=== PATIENT | male | born 1965 | race Caucasian/White ===

== ENCOUNTER 2016-11-26 13:14 | Emergency (ER) | payer BC ==
[~2016-11-26] VITALS: Ht 177.8 cm; Wt 74.8 kg
[2016-11-26 13:27] VITALS: BP 130/94
[2016-11-26] MEDS ORDERED: GLUCOPHAGE XR500 MG PO (13:28)
--- NOTE | 2016-11-26 13:38 | NUR ---
PATIENT PRESENTS TO ED WITH C/O RIGHT EYE PAIN AND REDNESS X 2 DAYS . PT STATES HE WAS SEEN AT URGENT CARE AND ADVISED TO FOLLOW UP AT ER TO CHECK FOR GLAUCOMA . DENIES N/V/D; SKIN IS PINK/WARM/DRY; AAOX4 WITH EVEN AND STEADY GAIT; LUNGS CLEAR BL; HR EVEN AND REGULAR; PT DENIES ANY FEVER, CP, SOB, OR COUGH AT THIS TIME; PATIENT STATES PAIN OF 4/10 AT THIS TIME; VSS; PATIENT POSITIONED FOR COMFORT; HOB ELEVATED; BEDRAILS UP X2; BED DOWN. ER MD MADE AWARE OF PT STATUS.
[2016-11-26] MEDS ORDERED: TETRACAINE 0.5% OPTH SOL 2 ML BTL OP ONE (13:45)
[2016-11-26] MEDS ORDERED: FLUORESCEIN OPTH STRIP 1 MG ONE (13:59)
[2016-11-26] MEDS ORDERED: GENTAMICIN OP 0.3% 10.5 MG/3.5 GM TUBE OP ONE (14:05)
[2016-11-26 14:31] VITALS: BP 130/94
--- NOTE | 2016-11-26 14:32 | NUR ---
Patient discharged with v/s stable. Written and verbal after care instructions given and explained. Patient alert, oriented and verbalized understanding of instructions. Ambulatory with steady gait. All questions addressed prior to discharge. ID band removed. Patient advised to follow up with PMD. Rx of GARAMYCIN OPHTHALMIC OINTMENT given. Patient educated on indication of medication including possible reaction and side effects. Opportunity to ask questions provided and answered.
== END 2016-11-26 14:32 | disposition home or self-care (01) ==
LOC: MED 13:26
DX: S05.01XA Injury of conjunctiva and corneal abrasion without foreign body, right eye, initial encounter (principal); R03.0 Elevated blood-pressure reading, without diagnosis of hypertension; E11.9 Type 2 diabetes mellitus without complications; Z79.4 Long term (current) use of insulin; X58.XXXA Exposure to other specified factors, initial encounter; Y93.89 Activity, other specified; Y92.89 Other specified places as the place of occurrence of the external cause; Y99.8 Other external cause status

== ENCOUNTER 2021-07-02 18:03 | Inpatient (IN) | payer OTHER, SELFPAY ==
[~2021-07-02] VITALS: Ht 177.8 cm; Wt 70.3 kg
[~2021-07-02 18:03] MED LIST: METF500T2 PO
[2021-07-02 18:11] VITALS: BP 140/85
--- NOTE | 2021-07-02 18:29 | NUR ---
56 Y/O MALE WITH C/O R KNEE PAIN SINCE MONDAY PM. PT STATED "HE HAD A PHYSICAL MONDAY AND STARTED TO EXPERINCE R KNEE PAIN RANDOMLY." PT TOOK TYLENOL AT HOME WHICH PROVIDED SOME RELIEF. SWELLING AND REDNESS TO RT FOOT, WARM TO TOUCH. PMH: CATARACTS, DM NKA
--- NOTE | 2021-07-02 18:53 | NUR ---
DR WALKER AT BEDSIDE EXAMINING PT
[2021-07-02] MEDS ORDERED: NACL 0.9% 1,000 ML IV ONE (19:10)
[2021-07-02] MEDS ORDERED: VANCOMYCIN 1,000 MG in DEXTROSE 5% 250 ML IV ONE (19:10)
[2021-07-02] MEDS ORDERED: PIPERACILLIN/TAZOBACTAM 3.375 GM in DEXTROSE 5% 50 ML IV ONE (19:10)
[2021-07-02] MEDS ORDERED: KETOROLAC 15 MG/ML VIAL IVP ONE (19:10)
--- NOTE | 2021-07-02 19:22 | NUR ---
Pt report given to TWILA CATALAN. Transfer of care at this time.
[2021-07-02] MEDS ORDERED: PIPERACILLIN/TAZOBACTAM 3.375 GM VIAL IV ONE (19:27)
[2021-07-02] MEDS ORDERED: VANCOMYCIN 1,000 MG VIAL ONE (19:28)
[2021-07-02 19:52] LABS: BASOPHILS % (AUTO) 0.2 % (0.0-2.0); EOSINOPHILS # (AUTO) 0.1 K/uL (0-0.4); EOSINOPHILS % (AUTO) 0.8 % (0.0-4.0); HEMATOCRIT 36.9 % (36-52); HEMOGLOBIN 12.4 g/dL (12.0-18.0); LYMPHOCYTES # (AUTO) 2.7 K/uL (2.0-11.5); LYMPHOCYTES % (AUTO) 19.8 % (20.5-51.1); MEAN CORPUSCULAR HEMOGLOBIN 31 pg (27-31); MEAN CORPUSCULAR HGB CONC 34 g/dL (33-37); MEAN CORPUSCULAR VOLUME 91.8 fL (80-94); MONOCYTES # (AUTO) 1.2 K/uL (0.8-1.0); MONOCYTES % (AUTO) 8.7 % (1.7-9.3); NEUTROPHILS # (AUTO) 9.6 K/uL (1.8-7.7); NEUTROPHILS % (AUTO) 70.5 % (42.2-75.2); PLATELET COUNT (AUTO) 236 K/uL (140-450); RED BLOOD CELL COUNT(AUTO) 4.02 MIL/uL (4.20-6.10); RED CELL DISTRIBUTION WIDTH 12.9 % (11.6-13.7); WHITE BLOOD COUNT (AUTO) 13.6 K/uL (4.8-10.8)
[2021-07-02 20:06] LABS: ALBUMIN 3.1 g/dL (3.4-5.0); CARBON DIOXIDE 30.1 mmol/L (21-32); CREATININE 1.1 mg/dL (0.6-1.3); POTASSIUM 4.1 mmol/L (3.5-5.1); TOTAL BILIRUBIN 0.6 mg/dL (0.0-1.0)
--- NOTE | 2021-07-02 20:43 | NUR ---
FULLY VACCINATED, DENIES MED USE AT HOME
[2021-07-02 20:46] LABS: APPEARANCE,URINE CLEAR (CLEAR); BILIRUBIN,URINE NEGATIVE (NEGATIVE); BLOOD, URINE NEGATIVE (NEGATIVE); COLOR,URINE YELLOW (YELLOW); LEUKOCYTE ESTERASE ,URINE NEGATIVE (NEGATIVE); NITRITE, URINE NEGATIVE (NEGATIVE); UGLUCOSE 3+ (NEGATIVE)
[2021-07-02] MEDS ORDERED: SODIUM PHOS / POTASSIUM PHOS 1 PKT PDR PO PRN (20:55)
[2021-07-02] MEDS ORDERED: ONDANSETRON 4 MG/2 ML VIAL IM/IVP PRN (20:55)
[2021-07-02] MEDS ORDERED: MORPHINE SULFATE 2 MG/ML SYR IVP PRN (20:55)
[2021-07-02] MEDS ORDERED: POTASSIUM CHLORIDE 10 MEQ TABER PO PRN (20:55)
[2021-07-02] MEDS ORDERED: MAGNESIUM OXIDE 400 MG TAB PO PRN (20:55)
[2021-07-02] MEDS ORDERED: ACETAMINOPHEN 325 MG TAB PO PRN (20:55)
[2021-07-02] MEDS ORDERED: DOCUSATE SODIUM 100 MG GELCAP PO PRN (20:55)
[2021-07-02] MEDS ORDERED: VANCOMYCIN PER PHARMACY MC PRN (21:10)
[2021-07-02] MEDS ORDERED: DEXTROSE 50% 50 ML SYR IVP PRN (21:10)
[2021-07-02] MEDS: NACL 0.9% 1,000 ML IV SCH (21:21)
[2021-07-02 21:22] LABS: MAGNESIUM 2.2 mg/dL (1.8-2.4)
--- NOTE | 2021-07-02 21:41 | NUR ---
ROSALVA KAYE [phone]
--- NOTE | 2021-07-02 22:22 | NUR ---
REPORT GIVEN TO MINAL AT THIS TIEM. READY FOR TRANSFER TO 112 [address]
--- NOTE | 2021-07-02 22:40 | NUR ---
RECEIVED ADMISSION REPORT FROM ER NURSE. PT ARRIVED TO THE UNIT VIA WHEEL CHAIR. PT CAME IN WITH RIGHT KNEE PAIN AND SWELLING FOR 3 DAYS. DX: RT FOOT ULCER AND CELLULITIS OF TOE. HX: DM, CATARACTS. NO ALLERGIES, FULL CODE. NS 60ML/HR, IV SITE RAC 18G, AND LEFT FOREARM 20G. PT IS A&O X4, AMBULATORY, SAFETY MEASURES IN PLACE, CALL LIGHT WITHIN REACH, MRSA SWAB TAKEN, ADMISSION VITALS 139/87, HR 81, TEMP 98.0, RR 18, OR SAT: 98%, PT STABLE, WILL CONTINUE TO MONITOR.
[2021-07-03] MEDS ORDERED: PIPERACILLIN/TAZOBACTAM 3.375 GM VIAL IV ONE ×2 (00:20→05:32)
[2021-07-03] MEDS: PIPERACILLIN/TAZOBACTAM 3.375 GM in DEXTROSE 5% 50 ML IV SCH ×4 (00:35→18:01)
--- NOTE | 2021-07-03 00:35 | NUR ---
ADMINISTERED SCHEDULED MED. PATIENT IS ASLEEP, NO SIGNS OF DISTRESS, PT STABLE AT THIS MOMENT, WILL CONTINUE TO MONITOR.
--- NOTE | 2021-07-03 03:55 | NUR ---
PT IS ASLEEP, NO SIGNS OF DISTRESS, NORMAL SALINE CURRENTLY INFUSING 60ML/HR, PT STABLE AT THIS MOMENT, WILL CONTINUE TO MONITOR.
[2021-07-03] MEDS: BLOOD GLUCOSE MONITORING 1 DEV DEV FS SCH ×4 (06:35→21:34)
[2021-07-03] MEDS: INSULIN LISPRO SLIDING SCALE 100 UNITS/ML VIAL SUBQ PRN ×4 (06:35→21:46)
--- NOTE | 2021-07-03 06:35 | NUR ---
BS 252 , given 6 units of insulin, patient is stable, will continue to monitor.
--- NOTE | 2021-07-03 06:42 | NUR ---
PATIENT HAS BEEN SCREENED AND CATEGORIZED HIGH NUTRITION RISK. PATIENT WILL BE SEEN WITHIN 1-2 DAYS OF ADMISSION. 07/04/21-07/05/21 TANA CORTEZ MS, RDN
[2021-07-03 07:12] LABS: BASOPHILS % (AUTO) 0.2 % (0.0-2.0); EOSINOPHILS # (AUTO) 0.2 K/uL (0-0.4); EOSINOPHILS % (AUTO) 1.9 % (0.0-4.0); HEMATOCRIT 36.1 % (36-52); HEMOGLOBIN 12.5 g/dL (12.0-18.0); LYMPHOCYTES % (AUTO) 20.2 % (20.5-51.1); MEAN CORPUSCULAR HEMOGLOBIN 32 pg (27-31); MEAN CORPUSCULAR HGB CONC 35 g/dL (33-37); MEAN CORPUSCULAR VOLUME 91.7 fL (80-94); MONOCYTES # (AUTO) 0.9 K/uL (0.8-1.0); MONOCYTES % (AUTO) 8.7 % (1.7-9.3); NEUTROPHILS # (AUTO) 6.8 K/uL (1.8-7.7); PLATELET COUNT (AUTO) 211 K/uL (140-450); RED BLOOD CELL COUNT(AUTO) 3.94 MIL/uL (4.20-6.10); RED CELL DISTRIBUTION WIDTH 12.8 % (11.6-13.7); WHITE BLOOD COUNT (AUTO) 9.9 K/uL (4.8-10.8)
[2021-07-03] MEDS ORDERED: VANCOMYCIN 1GM/DEXT 5% PREMIX 200 ML IV SCH (07:30)
--- NOTE | 2021-07-03 07:30 | NUR ---
PASSED ON BEDSIDE REPORT TO AM SHIFT RN. PATIENT IS STABLE AT THIS MOMENT.
--- NOTE | 2021-07-03 07:32 | NUR ---
RECEIVED BEDSIDE REPORT FROM VULCANIZER OPERATOR NURSE FOR CONTINUITY OF CARE. PT IS AOX4, ABLE TO MAKE NEEDS KNOWN. RESPIRATIONS EVEN AND UNLABORED. ON ROOM AIR AND NO DISTRESS NOTED. SKIN IS WARM, DRY, AND NON-INTACT. RIGHT FOOT ULCER OPEN TO AIR. NO DRAINAGE NOTED. DENIES PAIN AT THE MOMENT. IV SITE RAC 18G, AND LEFT FOREARM 20G. INFUSING FLUIDS WELL. AMBULATORY, PLAN OF CARE DISCUSSED. SAFETY MEASURES IN PLACE, CALL LIGHT WITHIN REACH, MRSA SWAB TAKEN, WILL CONTINUE TO MONITOR.
[2021-07-03] MEDS ORDERED: VANCOMYCIN 1,000 MG VIAL ONE (07:37)
[2021-07-03 07:41] LABS: ANION GAP 11.1 (8-16); CARBON DIOXIDE 27.7 mmol/L (21-32); CREATININE 0.9 mg/dL (0.6-1.3); POTASSIUM 3.8 mmol/L (3.5-5.1)
[2021-07-03 08:00] VITALS: BP 141/82
[2021-07-03 08:45] LABS: BARBITURATE, URINE NEGATIVE ng/ml (NEG <=200); BENZODIAZEPINE, URINE NEGATIVE ng/mL (NEG <=200); CANNABINOID, URINE NEGATIVE ng/mL (NEG <=50); COCAINE, URINE NEGATIVE ng/mL (NEG <=300); OPIATE, URINE NEGATIVE ng/mL (NEG <=2000); PHENCYCLIDINE SCREEN,URINE NEGATIVE ng/mL (NEG <=25)
[2021-07-03] MEDS: VANCOMYCIN HCL 1.25 GM in NACL 0.9% 250 ML IV SCH ×2 (09:32→21:38)
[2021-07-03] MEDS: PANTOPRAZOLE 40 MG TABEC PO SCH (09:32)
--- NOTE | 2021-07-03 09:50 | NUR ---
ALL SCHEDULED MEDS GIVEN. PT IS STABLE. NO DISTRESS NOTED. WILL CONTINUE TO MONITOR.
--- NOTE | 2021-07-03 12:58 | NUR ---
BLOOD GLUCOSE CHECK WAS 232. ADMINISTERED 4 UNITS OF INSULIN SQ PER MD ORDERED.
[2021-07-03] MEDS: NACL 0.9% 1,000 ML IV SCH ×2 (13:42→21:38)
--- NOTE | 2021-07-03 15:30 | NUR ---
CHECKED ON PATIENT. PATIENT IS STABLE. NO DISTRESS NOTED. PT VISITOR AT BEDSIDE. WILL CONTINUE TO MONITOR.
[2021-07-03 16:00] VITALS: BP 132/74
--- NOTE | 2021-07-03 18:01 | NUR ---
BLOOD GLUCOSE CHECK WAS 223 . ADMINISTERED 4 UNITS OF INSULIN SQ PER MD ORDERED.
--- NOTE | 2021-07-03 19:40 | NUR ---
ENDORSED TO DISPUTE RESOLUTION ANALYST NURSE FOR CONTINUITY OF CARE. PT IS STABLE.
[2021-07-03 20:00] VITALS: BP 134/79
[2021-07-04] MEDS: PIPERACILLIN/TAZOBACTAM 3.375 GM in DEXTROSE 5% 50 ML IV SCH ×4 (00:10→18:06)
[2021-07-04 04:00] VITALS: BP 153/81
[2021-07-04] MEDS: BLOOD GLUCOSE MONITORING 1 DEV DEV FS SCH ×4 (06:15→21:17)
[2021-07-04] MEDS: INSULIN LISPRO SLIDING SCALE 100 UNITS/ML VIAL SUBQ PRN ×3 (06:18→21:21)
--- NOTE | 2021-07-04 07:20 | NUR ---
RECEIVED PT FROM ANDREZ CATALAN. PT IS AAOX4. NORMAL S1S2 NOTED. LUNG SOUNDS CTA. ON R/A. NO COUGH OR SOB NOTED. ABDOMEN SOFT, NONTENDER, NONDISTENDED. BOWEL SOUNDS ACTIVE X4 QUADS. DENIES N/V/D/C. R FOOT WOUND COVERED WITH GABI BANDAGE. PODIATRY MET WITH PT THIS MORNING AND PERFORMED WOUND CARE AND DRESSING CHANGE. PT DENIES PAIN. BLE DISTAL PULSES MODERATE, BUE DISTAL PULSES STRONG. IV CATH TO [facility] [place] 18G AND LFA 20G WITH 60ML NS RUNNING TO [facility] [place]. BOTH SITES SHOW NO S/S OF INFECTION OR INFILTRATION. BOTH COVERED WITH CDI DRESSING. PT EDUCATED TO KEEP R FOOT ELEVATED ON PILLOW AND ONCE FOOT BRACE IS IN PLACE TO ONLY WALK ON R HEEL. PT VERBALIZED UNDERSTANDING. BED IN LOWEST POSITION. CALL LIGHT WITHIN REACH. BILATERAL UPPER HALF SIDE RAILS UP.
--- NOTE | 2021-07-04 07:41 | NUR ---
Assumed care last night. A/O x 4. On IV fluids, and IV abx. Supervisory Cbp Officer at the eside this AM. Pt refuses surgery at this time. Prefers to continue with IV Abx treatment. He will be getting a podiatry shoe. He is advised to heel walk. Care has been endorsed to AM RN.
[2021-07-04 08:12] LABS: BASOPHILS % (AUTO) 0.3 % (0.0-2.0); EOSINOPHILS # (AUTO) 0.1 K/uL (0-0.4); HEMATOCRIT 36.1 % (36-52); HEMOGLOBIN 12.3 g/dL (12.0-18.0); LYMPHOCYTES # (AUTO) 1.6 K/uL (2.0-11.5); LYMPHOCYTES % (AUTO) 16.4 % (20.5-51.1); MEAN CORPUSCULAR HEMOGLOBIN 31 pg (27-31); MEAN CORPUSCULAR HGB CONC 34 g/dL (33-37); MEAN CORPUSCULAR VOLUME 91.5 fL (80-94); MONOCYTES # (AUTO) 0.7 K/uL (0.8-1.0); MONOCYTES % (AUTO) 7.5 % (1.7-9.3); NEUTROPHILS # (AUTO) 7.4 K/uL (1.8-7.7); NEUTROPHILS % (AUTO) 74.8 % (42.2-75.2); PLATELET COUNT (AUTO) 237 K/uL (140-450); RED BLOOD CELL COUNT(AUTO) 3.95 MIL/uL (4.20-6.10); RED CELL DISTRIBUTION WIDTH 12.7 % (11.6-13.7); WHITE BLOOD COUNT (AUTO) 9.9 K/uL (4.8-10.8)
[2021-07-04 08:30] LABS: ANION GAP 13.3 (8-16); CARBON DIOXIDE 26.4 mmol/L (21-32); CREATININE 1.1 mg/dL (0.6-1.3); POTASSIUM 3.7 mmol/L (3.5-5.1)
--- NOTE | 2021-07-04 08:38 | NUR ---
REPORTED TO EBONY MONAE RN THAT PT HAS ORDER FOR PICC LINE, AT THIS TIME PT WOULD LIKE TO THINK ABOUT THE PROCEDURE AND HAS NOT SIGNED THE CONSENT FORM.
[2021-07-04] MEDS: PANTOPRAZOLE 40 MG TABEC PO SCH (09:50)
[2021-07-04] MEDS: VANCOMYCIN HCL 1.25 GM in NACL 0.9% 250 ML IV SCH ×2 (10:27→21:27)
--- NOTE | 2021-07-04 10:27 | NUR ---
HOSSEIN MONAE HOUSE SUP IN ROOM SPEAKING WITH PT ABOUT RISK AND BENEFITS OF PICC LINE INSERTION. PT STATES HE IS STILL UNSURE AND WOULD LIKE TO WAIT TO SIGN THE CONSENT FORM. VANCO IVPB GIVEN. PT DENIES PAIN.
[2021-07-04 11:16] VITALS: BP 150/79
[2021-07-04 16:00] VITALS: BP 153/81
[2021-07-04] MEDS: NACL 0.9% 1,000 ML IV SCH (18:18)
--- NOTE | 2021-07-04 19:30 | NUR ---
RECEIVED REPORT FROM AM NURSE. PATIENT IS RESTING IN BED. NO SOB NOTED. IV SITE RFA RUNNING NS AT 40 ML. CALL LIGHT WITHIN REACH. NO COMPLAINTS OF PAIN. ALL SAFETY MEASURES ARE IN PLACE. WILL CONTINUE TO MONITOR.
--- NOTE | 2021-07-04 21:17 | NUR ---
BLOOD SUGAR 235 INSULIN GIVEN ORDERED PER SLIDING SCALE.
--- NOTE | 2021-07-04 21:27 | NUR ---
VANCOMYCIN 1.25GM AT 125 ML/HR GIVEN SCHEDULED ON THE RIGHT FOREARM. CALL LIGHT WITHIN REACH.
[2021-07-05] VITALS: BP 143/79
[2021-07-05] MEDS: PIPERACILLIN/TAZOBACTAM 3.375 GM in DEXTROSE 5% 50 ML IV SCH ×4 (00:19→18:31)
--- NOTE | 2021-07-05 00:20 | NUR ---
ZOSYN 3.375 GIVEN IVPB DUE SCHEDULED.
[2021-07-05] MEDS ORDERED: SEVOFLURANE 250 ML BTL INH ONE (06:05)
[2021-07-05] MEDS: INSULIN LISPRO SLIDING SCALE 100 UNITS/ML VIAL SUBQ PRN ×3 (06:44→16:30)
[2021-07-05] MEDS: BLOOD GLUCOSE MONITORING 1 DEV DEV FS SCH ×4 (06:44→21:00)
[2021-07-05 07:00] LABS: BASOPHILS % (AUTO) 0.2 % (0.0-2.0); EOSINOPHILS # (AUTO) 0.1 K/uL (0-0.4); EOSINOPHILS % (AUTO) 1.3 % (0.0-4.0); HEMATOCRIT 34.3 % (36-52); HEMOGLOBIN 11.6 g/dL (12.0-18.0); LYMPHOCYTES # (AUTO) 1.8 K/uL (2.0-11.5); MEAN CORPUSCULAR HEMOGLOBIN 31 pg (27-31); MEAN CORPUSCULAR HGB CONC 34 g/dL (33-37); MONOCYTES # (AUTO) 0.8 K/uL (0.8-1.0); MONOCYTES % (AUTO) 8.6 % (1.7-9.3); NEUTROPHILS % (AUTO) 71.9 % (42.2-75.2); PLATELET COUNT (AUTO) 234 K/uL (140-450); RED BLOOD CELL COUNT(AUTO) 3.73 MIL/uL (4.20-6.10); RED CELL DISTRIBUTION WIDTH 12.5 % (11.6-13.7); WHITE BLOOD COUNT (AUTO) 9.8 K/uL (4.8-10.8)
[2021-07-05 07:11] LABS: ANION GAP 13.4 (8-16); CARBON DIOXIDE 25.5 mmol/L (21-32); CREATININE 1.4 mg/dL (0.6-1.3); POTASSIUM 3.9 mmol/L (3.5-5.1)
--- NOTE | 2021-07-05 07:25 | NUR ---
ENDORSED TO AM NURSE FOR CONTINUITY OF CARE. PATIENT IS STABLE.
--- NOTE | 2021-07-05 07:26 | NUR ---
RECEIVED PATIENT FROM CHIEF PILOT NURSE FOR CONTINUITY OF CARE. PATIENT IS SITTING UP, A/A/O X4. RESPIRATORY EVEN AND UNLABORED, ON ROOM AIR. NO SIGN OF DISTRESS NOTED. SKIN WARM, DRY, NON DIAPHORETIC. IV ON RIGHT FA 18G, INTACT AND PATENT, IS INFUSING FLUID ORDER. IV ON LEFT FA 20G, INTACT AND PATENT. SECOND TOE ON RIGHT FOOT ULCER, DRESSING INTACT, DRY AND CLEAN. PATIENT DENIES ANY PAIN OR DISCOMFORT. ABLE TO MAKE NEED KNOWN. PLAN OF CARE DISCUSSED. PATIENT VERBALIZED UNDERSTANDING. CALL LIGHT WITHIN REACH. WILL CONTINUE TO MONITOR.
--- NOTE | 2021-07-05 07:36 | NUR ---
OR NURSE AT BEDSIDE, PATIENT IS READY TO TRANSFER TO OR.
[2021-07-05] MEDS ORDERED: BUPIVACAINE-MPF 0.25% 30 ML VIAL INJ ONE (07:41)
[2021-07-05] MEDS ORDERED: LIDOCAINE 1% 500 MG/50 ML VIAL ONE (07:41)
[2021-07-05] MEDS ORDERED: MEPERIDINE 25 MG/ML SYR IVP PRN (07:50)
[2021-07-05] MEDS ORDERED: BLOOD GLUCOSE MONITORING 1 DEV DEV FS SCH (07:50)
[2021-07-05] MEDS ORDERED: ONDANSETRON 4 MG/2 ML VIAL IVP PRN (07:50)
[2021-07-05] MEDS ORDERED: NACL 0.9% 1,000 ML IV SCH (07:50)
[2021-07-05] MEDS ORDERED: HYDROmorphone 1 MG/ML AMP IVP PRN (07:50)
[2021-07-05] MEDS ORDERED: diphenhydrAMINE 50 MG/ML VIAL IVP PRN (07:50)
[2021-07-05] MEDS ORDERED: PROPOFOL 200 MG/20 ML VIAL IV ONE (07:52)
[2021-07-05] MEDS ORDERED: fentaNYL citrate 0.05 MG/ML VIAL ONE (07:52)
[2021-07-05] MEDS ORDERED: MIDAZOLAM 2 MG/2 ML VIAL ONE (07:52)
[2021-07-05] MEDS ORDERED: ONDANSETRON 4 MG/2 ML VIAL ONE (08:33)
[2021-07-05] MEDS ORDERED: DEXAMETHASONE 4 MG/ML VIAL ONE (08:34)
[2021-07-05] MEDS ORDERED: ePHEDrine 50 MG/ML VIAL ONE (08:59)
--- NOTE | 2021-07-05 09:35 | NUR ---
WOUND CONSULT NOT DONE, PT. SEEN AND TREATED BY IN HOUSE AUTOMOTIVE COLLISION REPAIR INSTRUCTOR TEAM.
--- NOTE | 2021-07-05 10:08 | NUR ---
PATIENT RETURN FROM OR. PATIENT IS A/A/O X4. RESPIRATORY EVEN AND UNLABORED, ON ROOM AIR, NO SIGN OF DISTRESS NOTED. PATIENT DENIES ANY PAIN OR DISCOMFORT. ABLE TO MAKE NEED KNOWN. FAMILY AT BEDSIDE. CALL LIGHT WITHIN REACH. WILL CONTINUE TO MONITOR.
[2021-07-05 10:20] VITALS: BP 164/89
[2021-07-05] MEDS: PANTOPRAZOLE 40 MG TABEC PO SCH (10:25)
[2021-07-05] MEDS: hydrALAZINE 20 MG/ML VIAL IVP PRN (11:32)
--- NOTE | 2021-07-05 11:32 | NUR ---
RECHECK PATIENT'S BP 172/98, HR 82, PRN HYDRALAZINE GIVEN WITH EDUCATION, PATIENT VERBALIZED UNDERSTANDING. NO SIGN OF DISTRESS NOTED. CALL LIGHT WITHIN REACH. WILL CONTINUE TO MONITOR.
--- NOTE | 2021-07-05 12:33 | NUR ---
BLOOD SUGAR CHECK 246, 4 UNITS OF INSULIN GIVEN WITH EDUCATION. PATIENT VERBALIZED UNDERSTANDING. PATIENT IS SITTING IN CHAIR TO HAVE LUNCH. NO SIGN OF DISTRESS NOTED. CALL LIGHT WITHIN REACH. WILL CONTINUE TO MONITOR.
--- NOTE | 2021-07-05 13:54 | NUR ---
07/05/21 RD INITIAL ASSESSMENT COMPLETED PLEASE REFER TO NUTRITION ASSESSMENT UNDER CARE ACTIVITY FOR ESTIMATED NUTRITIONAL NEEDS. 1. RECOMMEND CCHO/MECHANICALLY CHOPPED DIET TOLERATED 2. RECOMMEND JUAN CARLOS AND GLUCERNA 1X DAILY FOR WOUND HEALING 3. RD TO FOLLOW-UP 5-7 DAYS, LOW RISK JOEL JUAREZ, RD
--- NOTE | 2021-07-05 14:00 | NUR ---
PATIENT IS SITTING IN CHAIR. NO SIGN OF DISTRESS NOTED. CALL LIGHT WITHIN REACH. WILL CONTINUE TO MONITOR.
[2021-07-05 16:00] VITALS: BP 120/63
--- NOTE | 2021-07-05 16:13 | NUR ---
DC PLANNING: CM SPOKE WITH THE PATIENT AND HIS AT BEDSIDE. THE PATIENT IS S/P PARTIAL AMPUTATION OF 2ND DIGIT RIGHT TOE AND DEBRIDEMENT BY PODIATRY. CM CONFIRMED THAT PATIENTS ADDRESS AND PHONE NUMBER PER FACE SHEET. THE PATIENT LIVES WITH HIS AND CHILDREN IN A SINGLE STORY HOUSE. HE IS INDEPENDENT IN ALL ACTIVITIES AND HAS NO H/O OF HOME HEALTH OR DME. HE HAS BEEN ISSUED A POST OP BOOT AND CRUTCHES BY P.T. AND HAS ALREADY DONE GAIT TRAINING. HE HAS USED CRUTCHES IN THE PAST AND STATES THAT HE IS COMFORTABLE USING THEM. CM REMINDED THE PATIENT THAT HE WILL NEED TO F/U WITH THE SURGICAL ASST AFTER DISCHARGE AND THAT HE NEEDS TO SEE A PCP REGULARLY IN THE FUTURE. HE STATES THAT HE DOESN'T HAVE A PCP YET HIS INSURANCE JUST CHANGED BUT HE AND HIS ARE FOLLOWING UP ON THAT. THE PATIENT STATES THAT HE IS DIABETIC AND MIGHT HAVE BEEN DIAGNOSED 15 YEARS AGO BUT HAS NOT FOLLOWED ANY KIND OF DIABETIC REGIMEN OR TREATMENT. HE STATES THAT HE WILL NOW BE SEEING AN MD AND FOLLOWING DIABETIC TESTING AND DIET. DC PLAN IS FOR THE PATIENT TO RETURN HOME WHEN CLINICALLY STABLE, CM WILL FOLLOW FOR NEEDS. Addendum: 07/07/21 at 1231 by Karen Pimentel RN DC PLANNING: CALLED [facility] SPOKE WITH [employer] WILL FAX ALL THE HOME HEALTH THAT ARE CONTRACTED WITH [facility] . PER GUANAKO [employer] DENIED THE 1ST DAY WHICH IS 07/02/21 BECAUSE IT IS THE WORKUP DAY AND CAN BE OBSERVATION AND APPROVED STARTING 07/03/21 -07/06 AUTH # [id number]. CM TO FOLLOW Addendum: 07/07/21 at 1344 by Karen Pimentel RN DC PLANNING: FAXED THE REQUEST TO [employer] [facility] AND TEAM [facility] AWAITING FOR ACCEPTANCE. CM TO FOLLOW Addendum: 07/07/21 at 1504 by Karen Pimentel RN DC PLANNING: RECEIVED A CALL FROM [employer] [facility] [phone] SPOKE WITH QASIM REQUESTING THE PCP NUMBER TO SIGN THE CARE PLAN. PATIENT STATED HE HAS A NEW PCP AND HAS APPOINTMENT ON JULY 13 AT 2 PM BUT HE WON'T REMEMBER THE NAME AND THE NUMBER ONCE HE GOES HOME WILL CALL WITH PCP NUMBER. SPOKE WITH HIS ROSALVA REMIND HER TO CALL DR CALVILLO'S OFFICE TO MAKE APPOINTMENT FOR DRESSING CHANGE. PT AND PT'S UNDERSTOOD . CM TO FOLLOW
--- NOTE | 2021-07-05 16:28 | NUR ---
BLOOD SUGAR CHECK 278, 6 UNITS INSULIN GIVEN WITH EDUCATION, PATIENT TOLERATED WELL. NO SIGN OF DISTRESS NOTED. CALL LIGHT WITHIN REACH. WILL CONTINUE TO MONITOR.
--- NOTE | 2021-07-05 18:31 | NUR ---
SCHEDULE MEDICATION GIVEN WITH EDUCATION. PATIENT VERBALIZED UNDERSTANDING. PATIENT TOLERATED WELL. NO SIGN OF DISTRESS NOTE. CALL LIGHT WITHIN REACH. WILL CONTINUE TO MONITOR.
[2021-07-05] MEDS: NACL 0.9% 1,000 ML IV SCH (18:41)
--- NOTE | 2021-07-05 19:35 | NUR ---
ENDORSED PATIENT TO SAMPLER PICKUP NURSE FOR CONTINUITY OF CARE. PATIENT IS STABLE.
[2021-07-05 20:00] VITALS: BP 144/84
[2021-07-06] VITALS: BP 136/78
[2021-07-06] MEDS: HYDROcodone/APAP 5/325 MG 1 TAB TAB PO PRN ×2 (03:11→09:43)
[2021-07-06 04:00] VITALS: BP 126/63
[2021-07-06] MEDS: PIPERACILLIN/TAZOBACTAM 3.375 GM in DEXTROSE 5% 50 ML IV SCH ×6 (06:02→23:17)
[2021-07-06] MEDS: BLOOD GLUCOSE MONITORING 1 DEV DEV FS SCH ×4 (06:02→21:33)
[2021-07-06 07:10] LABS: BASOPHILS % (AUTO) 0.1 % (0.0-2.0); EOSINOPHILS # (AUTO) 0.1 K/uL (0-0.4); EOSINOPHILS % (AUTO) 0.9 % (0.0-4.0); HEMATOCRIT 32.2 % (36-52); HEMOGLOBIN 10.8 g/dL (12.0-18.0); LYMPHOCYTES # (AUTO) 2.6 K/uL (2.0-11.5); LYMPHOCYTES % (AUTO) 23.2 % (20.5-51.1); MEAN CORPUSCULAR HEMOGLOBIN 31 pg (27-31); MEAN CORPUSCULAR HGB CONC 34 g/dL (33-37); MONOCYTES % (AUTO) 8.6 % (1.7-9.3); NEUTROPHILS # (AUTO) 7.7 K/uL (1.8-7.7); NEUTROPHILS % (AUTO) 67.2 % (42.2-75.2); PLATELET COUNT (AUTO) 220 K/uL (140-450); RED BLOOD CELL COUNT(AUTO) 3.53 MIL/uL (4.20-6.10); RED CELL DISTRIBUTION WIDTH 12.6 % (11.6-13.7); WHITE BLOOD COUNT (AUTO) 11.4 K/uL (4.8-10.8)
[2021-07-06 07:22] LABS: ANION GAP 11.3 (8-16); CARBON DIOXIDE 25.5 mmol/L (21-32); CREATININE 1.4 mg/dL (0.6-1.3); POTASSIUM 3.8 mmol/L (3.5-5.1)
[2021-07-06 08:00] VITALS: BP 125/71
[2021-07-06] MEDS: NACL 0.9% 1,000 ML IV SCH (08:15)
[2021-07-06] MEDS: PANTOPRAZOLE 40 MG TABEC PO SCH (09:37)
[2021-07-06] MEDS ORDERED: VANCOMYCIN 1,000 MG in NACL 0.9% 250 ML IV SCH (11:00)
[2021-07-06] MEDS: INSULIN LISPRO SLIDING SCALE 100 UNITS/ML VIAL SUBQ PRN ×3 (13:15→21:39)
[2021-07-06 18:08] VITALS: BP 120/69
[2021-07-06] MEDS ORDERED: INSULIN LANTUS 100 UNITS/ML 10 ML VIAL SUBQ SCH (21:00)
[2021-07-07] VITALS: BP 121/71
[2021-07-07] MEDS: NACL 0.9% 1,000 ML IV SCH (00:52)
[2021-07-07 04:00] VITALS: BP 146/89
[2021-07-07] MEDS: PIPERACILLIN/TAZOBACTAM 3.375 GM in DEXTROSE 5% 50 ML IV SCH ×2 (05:55→12:18)
[2021-07-07 07:11] LABS: BASOPHILS % (AUTO) 0.3 % (0.0-2.0); EOSINOPHILS # (AUTO) 0.2 K/uL (0-0.4); HEMATOCRIT 33.8 % (36-52); HEMOGLOBIN 11.4 g/dL (12.0-18.0); LYMPHOCYTES # (AUTO) 1.9 K/uL (2.0-11.5); LYMPHOCYTES % (AUTO) 19.7 % (20.5-51.1); MEAN CORPUSCULAR HEMOGLOBIN 31 pg (27-31); MEAN CORPUSCULAR HGB CONC 34 g/dL (33-37); MEAN CORPUSCULAR VOLUME 92.3 fL (80-94); MONOCYTES # (AUTO) 0.7 K/uL (0.8-1.0); MONOCYTES % (AUTO) 7.8 % (1.7-9.3); NEUTROPHILS # (AUTO) 6.8 K/uL (1.8-7.7); NEUTROPHILS % (AUTO) 70.2 % (42.2-75.2); PLATELET COUNT (AUTO) 254 K/uL (140-450); RED BLOOD CELL COUNT(AUTO) 3.67 MIL/uL (4.20-6.10); RED CELL DISTRIBUTION WIDTH 12.7 % (11.6-13.7); WHITE BLOOD COUNT (AUTO) 9.6 K/uL (4.8-10.8)
[2021-07-07 07:27] LABS: ANION GAP 13.7 (8-16); CARBON DIOXIDE 26.2 mmol/L (21-32); CREATININE 1.4 mg/dL (0.6-1.3); POTASSIUM 3.9 mmol/L (3.5-5.1)
--- NOTE | 2021-07-07 07:47 | NUR ---
Patient noted to be resting. Does not show any signs of pain or discomfort. Safety measures in place with call light nearby, bed lowered and condiments provided.
[2021-07-07] MEDS: BLOOD GLUCOSE MONITORING 1 DEV DEV FS SCH ×2 (07:55→12:17)
[2021-07-07 08:00] VITALS: BP 181/96
[2021-07-07] MEDS ORDERED: LANTUS SUBQ (09:58)
[2021-07-07] MEDS ORDERED: ACET-9525 PO (09:58)
[2021-07-07] MEDS: PANTOPRAZOLE 40 MG TABEC PO SCH (09:59)
[2021-07-07] MEDS ORDERED: METF-938 PO (10:03)
[2021-07-07] MEDS: hydrALAZINE 20 MG/ML VIAL IVP PRN (10:14)
--- NOTE | 2021-07-07 10:32 | NUR ---
blood pressure elevated and patient given Hydralazine as ordered.
[2021-07-07 12:00] VITALS: BP 170/61
[2021-07-07] MEDS: INSULIN LISPRO SLIDING SCALE 100 UNITS/ML VIAL SUBQ PRN (12:16)
[2021-07-07 12:55] VITALS: BP 164/72
--- NOTE | 2021-07-07 15:11 | NUR ---
Patient discharged home and was given education on wound care, supplies and follow up appointments. Patient and spouse verbalized understanding. Taken off the unit in wheeled chair by director nursing service.
[2021-07-07 15:55] LABS: URINE TOTAL PROTEIN 26.6 mg/dL (0-12)
== END 2021-07-07 15:30 | disposition home health service (06) | DRG 854 ==
LOC: MED 18:03 → MTU 21:00
PROVIDERS: ADMIT Hospitalist; ATTEND Hospitalist
PROC: 0QBN0ZX Excision of Right Metatarsal, Open Approach, Diagnostic (ICD-10-PCS; 2021-07-05)
PROC: 0HBRXZZ Excision of Toe Nail, External Approach (ICD-10-PCS; 2021-07-05)
PROC: 0HBRXZZ Excision of Toe Nail, External Approach (ICD-10-PCS; 2021-07-05)
PROC: 0HBRXZZ Excision of Toe Nail, External Approach (ICD-10-PCS; 2021-07-05)
PROC: 0HBRXZZ Excision of Toe Nail, External Approach (ICD-10-PCS; 2021-07-05)
PROC: 0HBRXZZ Excision of Toe Nail, External Approach (ICD-10-PCS; 2021-07-05)
PROC: 0HBRXZZ Excision of Toe Nail, External Approach (ICD-10-PCS; 2021-07-05)
PROC: 0HBRXZZ Excision of Toe Nail, External Approach (ICD-10-PCS; 2021-07-05)
PROC: 0HBRXZZ Excision of Toe Nail, External Approach (ICD-10-PCS; 2021-07-05)
PROC: 0HBRXZZ Excision of Toe Nail, External Approach (ICD-10-PCS; 2021-07-05)
PROC: 0HBRXZZ Excision of Toe Nail, External Approach (ICD-10-PCS; 2021-07-05)
PROC: 0Y6M0ZB Detachment at Right Foot, Partial 2nd Ray, Open Approach (ICD-10-PCS; principal; 2021-07-05 09:50)
DX: A41.9 Sepsis, unspecified organism (principal); L03.115 Cellulitis of right lower limb; M86.8X7 Other osteomyelitis, ankle and foot; E44.0 Moderate protein-calorie malnutrition; L02.611 Cutaneous abscess of right foot; N17.9 Acute kidney failure, unspecified; E11.319 Type 2 diabetes mellitus with unspecified diabetic retinopathy without macular edema; E11.69 Type 2 diabetes mellitus with other specified complication; E11.36 Type 2 diabetes mellitus with diabetic cataract; Z20.822 Contact with and (suspected) exposure to COVID-19; D63.8 Anemia in other chronic diseases classified elsewhere; Z79.84 Long term (current) use of oral hypoglycemic drugs; Z79.899 Other long term (current) drug therapy; Z68.22 Body mass index [BMI] 22.0-22.9, adult
CPT/HCPCS: 36415; 71045; 73562; 73630; 73660; 76770; 80048; 80053; 80202; 80305; 81003; 82570; 82948; 83036; 83605; 83735; 84100; 84300; 85025; 85651; 86140; 86592; 87040; 87070; 87075; 87081; 87086; 87186; 87205; 88305; 88311; 93005; 93925; 93970; 96365; 96367; 96375; 97110; 97116; 97530; 99285; J0360; J1100; J1815; J1885; J2001; J2250; J2405; J2543; J2704; J3010; J3370; J3490; J7030; J7060; J7120; Q0092

== ENCOUNTER 2022-11-11 16:14 | Emergency (ER) | payer OTHER ==
[~2022-11-11] VITALS: Ht 177.8 cm; Wt 75.3 kg
[~2022-11-11 16:14] MED LIST changes: +ACET-9525 PO; +LANTUS SUBQ; +METF-938 PO; -METF500T2 PO
[2022-11-11 16:31] VITALS: BP 195/106
--- NOTE | 2022-11-11 17:12 | NUR ---
57 Y/O MALE BIB SELF C/O LEFT LEG CELLULITIS, WAS SEEN IN UC REFFERED TO ED. NOTED SWELLING ON THE AREA, NO OPEN WOUNDS. STATES THAT HE HASNT TAKEN ANY OF HIS BP MEDS NKA PMH: HTN, DM, HDL
[2022-11-11] MEDS ORDERED: CEPH-588 PO (17:57)
[2022-11-11] MEDS ORDERED: CLIN300C2 PO (17:57)
--- NOTE | 2022-11-11 18:08 | NUR ---
Patient does not wish to proceed with medical care recommended by AMPARO. Patient given information related to possible complications, up to and including , which could occur as a result of leaving hospital at this time. Patient verbalizes understanding of risks involved leaving against medical advice. Patient has signed AMA form.
[2022-11-12] MEDS ORDERED: METF-346 PO (14:28)
[2022-11-12] MEDS ORDERED: BENA20TA PO (14:30)
[2022-11-12] MEDS ORDERED: ATOR20TA PO (14:52)
== END 2022-11-11 18:08 | disposition home or self-care (01) ==
LOC: MED 16:14
DX: E11.621 Type 2 diabetes mellitus with foot ulcer (principal); M79.89 Other specified soft tissue disorders; Z79.4 Long term (current) use of insulin; Z79.899 Other long term (current) drug therapy
CPT/HCPCS: 99281

== ENCOUNTER 2022-11-12 09:24 | Inpatient (IN) | payer OTHER ==
[~2022-11-12] VITALS: Ht 177.8 cm; Wt 76.3 kg
[~2022-11-12 09:24] MED LIST changes: +CEPH-588 PO; +CLIN300C2 PO
[2022-11-12 09:27] VITALS: BP 182/105
--- NOTE | 2022-11-12 09:38 | NUR ---
PT AMB TO BED 11.
--- NOTE | 2022-11-12 09:56 | NUR ---
Patient being evaluated by DR SANDS at bedside.
--- NOTE | 2022-11-12 10:03 | NUR ---
pt in room 11, NAD, has diabetic foot ulcer, no dc, + foul smell, there is swelling and erythema, sr up times 2, o2 sat 99% ra. pedal pulses 2+
[2022-11-12] MEDS ORDERED: BACITRACIN OINT 500 UNITS/GM PKT TP ONE (10:10)
[2022-11-12 11:03] LABS: BASOPHILS # (AUTO) 0.1 K/uL (0.00-0.22); BASOPHILS % (AUTO) 0.4 % (0.0-2.0); EOSINOPHILS # (AUTO) 0.2 K/uL (0-0.4); EOSINOPHILS % (AUTO) 1.2 % (0.0-4.0); HEMATOCRIT 29.6 % (36-52); LYMPHOCYTES # (AUTO) 1.7 K/uL (2.0-11.5); LYMPHOCYTES % (AUTO) 12.3 % (20.5-51.1); MEAN CORPUSCULAR HEMOGLOBIN 29 pg (27-31); MEAN CORPUSCULAR HGB CONC 34 g/dL (33-37); MEAN CORPUSCULAR VOLUME 86.8 fL (80-94); MONOCYTES # (AUTO) 1.1 K/uL (0.8-1.0); MONOCYTES % (AUTO) 7.8 % (1.7-9.3); NEUTROPHILS # (AUTO) 11.2 K/uL (1.8-7.7); NEUTROPHILS % (AUTO) 78.3 % (42.2-75.2); PLATELET COUNT (AUTO) 268 K/uL (140-450); RED BLOOD CELL COUNT(AUTO) 3.42 MIL/uL (4.20-6.10); RED CELL DISTRIBUTION WIDTH 13.3 % (11.6-13.7); WHITE BLOOD COUNT (AUTO) 14.3 K/uL (4.8-10.8)
[2022-11-12] MEDS ORDERED: PIPERACILLIN/TAZOBACTAM 3.375 GM in DEXTROSE 5% 50 ML IV ONE (11:20)
[2022-11-12] MEDS ORDERED: VANCOMYCIN 1,000 MG in DEXTROSE 5% 250 ML IV ONE (11:20)
[2022-11-12] MEDS ORDERED: VANCOMYCIN 1,000 MG VIAL ONE (11:23)
[2022-11-12 11:24] LABS: ALBUMIN 2.3 g/dL (3.4-5.0); ANION GAP 9.9 (8-16); CARBON DIOXIDE 29.4 mmol/L (21-32); CREATININE 1.8 mg/dL (0.6-1.3); POTASSIUM 4.3 mmol/L (3.5-5.1); TOTAL BILIRUBIN 0.6 mg/dL (0.0-1.0)
[2022-11-12] MEDS ORDERED: PIPERACILLIN/TAZOBACTAM 3.375 GM VIAL IV ONE ×2 (11:24→18:15)
[2022-11-12] MEDS ORDERED: NACL 0.9% 1,000 ML IV ONE (11:25)
[2022-11-12] MEDS: NACL 0.9% 1,000 ML IV SCH ×2 (12:50→22:55)
[2022-11-12] MEDS ORDERED: HYDROcodone/APAP 7.5/325 MG 1 TAB PO PRN (12:50)
[2022-11-12] MEDS ORDERED: POTASSIUM CHLORIDE 10 MEQ TABER PO PRN (12:50)
[2022-11-12] MEDS ORDERED: ONDANSETRON 4 MG/2 ML VIAL IM/IVP PRN (12:50)
[2022-11-12] MEDS ORDERED: ZOLPIDEM 5 MG TAB PO PRN (12:50)
[2022-11-12] MEDS ORDERED: DOCUSATE SODIUM 100 MG GELCAP PO PRN (12:50)
[2022-11-12] MEDS ORDERED: guaiFENesin DM 200/20 MG-10 ML 10 ML UDC PO PRN (12:50)
[2022-11-12] MEDS ORDERED: ACETAMINOPHEN 325 MG TAB PO PRN (12:50)
--- NOTE | 2022-11-12 13:09 | NUR ---
sleeping, no ac distress, o2 sat 98% ra, sr up times 2
[2022-11-12] MEDS ORDERED: METF-346 PO (14:28)
[2022-11-12] MEDS ORDERED: BENA20TA PO (14:30)
[2022-11-12 14:39] LABS: CHOL/HDL RATIO 6.1 (1-4.5); FREE T4 (FREE THYROXINE) 1.23 ng/dL (0.76-1.46); MAGNESIUM 1.9 mg/dL (1.8-2.4); PHOSPHORUS 2.8 mg/dL (2.5-4.9); THYROID STIMULATING HORMONE 0.87 uIU/mL (0.34-3.74)
[2022-11-12 14:50] LABS: PROTHROMBIN TIME 10.3 secs (10.8-13.4)
[2022-11-12] MEDS ORDERED: ATOR20TA PO (14:52)
[2022-11-12] MEDS: PIPERACILLIN/TAZOBACTAM 3.375 GM in DEXTROSE 5% 50 ML IV SCH (18:18)
--- NOTE | 2022-11-12 19:00 | NUR ---
pt is resting on the bed and no sign of repiratory distress noted. Bed lowered
--- NOTE | 2022-11-12 21:00 | NUR ---
Pt called to ask the nurse to check on the IV and intact no sign of of infection noted.
[2022-11-13] MEDS ORDERED: PIPERACILLIN/TAZOBACTAM 3.375 GM VIAL IV ONE ×3 (00:28→12:18)
--- NOTE | 2022-11-13 01:00 | NUR ---
pt awake and alert is getting antibiotic and tolearted well.
[2022-11-13] MEDS: PIPERACILLIN/TAZOBACTAM 3.375 GM in DEXTROSE 5% 50 ML IV SCH ×5 (01:27→12:20)
[2022-11-13] MEDS ORDERED: LISI20TA29 PO (04:39)
[2022-11-13] MEDS ORDERED: LABETALOL 20 MG/4 ML VIAL IVP ONE (05:00)
[2022-11-13 06:34] LABS: BASOPHILS % (AUTO) 0.3 % (0.0-2.0); EOSINOPHILS # (AUTO) 0.2 K/uL (0-0.4); EOSINOPHILS % (AUTO) 1.7 % (0.0-4.0); HEMOGLOBIN 9.5 g/dL (12.0-18.0); LYMPHOCYTES # (AUTO) 2.2 K/uL (2.0-11.5); LYMPHOCYTES % (AUTO) 16.5 % (20.5-51.1); MEAN CORPUSCULAR HEMOGLOBIN 30 pg (27-31); MEAN CORPUSCULAR HGB CONC 34 g/dL (33-37); MEAN CORPUSCULAR VOLUME 87.5 fL (80-94); MONOCYTES % (AUTO) 7.3 % (1.7-9.3); NEUTROPHILS # (AUTO) 9.9 K/uL (1.8-7.7); NEUTROPHILS % (AUTO) 74.2 % (42.2-75.2); PLATELET COUNT (AUTO) 284 K/uL (140-450); RED CELL DISTRIBUTION WIDTH 13.2 % (11.6-13.7); WHITE BLOOD COUNT (AUTO) 13.4 K/uL (4.8-10.8)
[2022-11-13 06:42] LABS: ANION GAP 12.6 (8-16); CARBON DIOXIDE 26.3 mmol/L (21-32); CREATININE 1.6 mg/dL (0.6-1.3); POTASSIUM 3.9 mmol/L (3.5-5.1)
--- NOTE | 2022-11-13 07:19 | NUR ---
report received from gustavo hernandes, transfer of care at this time
--- NOTE | 2022-11-13 07:46 | NUR ---
DR HAMPTON INFORMED OF PT BS AT THIS TIME, PLACED TORB ORDERS FOR SLIDING SCALE AND ACCUCHECK. PT DENIES PAIN AT THIS TIME, IN BED WITH EYES CLOSED, RESPIRATIONS EVEN AND UNLABORED, ON BEDSIDE MONITOR
--- NOTE | 2022-11-13 08:00 | NUR ---
PT GIVEN BREAKFAST, HOB ELEVATED
--- NOTE | 2022-11-13 08:41 | NUR ---
PATIENT HAS BEEN SCREENED AND CATEGORIZED HIGH NUTRITION RISK. PATIENT WILL BE SEEN WITHIN 1-2 DAYS OF ADMISSION. 11/12/22-11/14/[address]
[2022-11-13] MEDS: NACL 0.9% 1,000 ML IV SCH ×2 (08:51→18:53)
[2022-11-13] MEDS: PANTOPRAZOLE 40 MG TABEC PO SCH (09:02)
[2022-11-13] MEDS: lisinopriL 20 MG TAB PO SCH (11:47)
[2022-11-13] MEDS: BLOOD GLUCOSE MONITORING 1 DEV DEV FS SCH ×3 (11:48→21:30)
--- NOTE | 2022-11-13 11:54 | NUR ---
SAWYER CORK SLABS AT BEDSIDE FOR DRESSING CHANGE
--- NOTE | 2022-11-13 12:13 | NUR ---
DR HAMPTON AT BEDSIDE FOR EVAL
[2022-11-13 13:23] LABS: CREATININE,URINE 126 mg/dL (30-125)
[2022-11-13] MEDS: INSULIN LISPRO SLIDING SCALE 100 UNITS/ML VIAL SUBQ PRN (17:06)
--- NOTE | 2022-11-13 18:20 | NUR ---
Patient will be admitted to care of PANCHO HANNA. Admited to MED SURG. Will go to room 118. Belongings list completed. Report to MANISHA CATALAN.
--- NOTE | 2022-11-13 18:58 | NUR ---
RECEIVE ER NURSE REPORT THAT PATIENT COME FROM HOME FOR L. FOOT WOUND GETTING WORSE, DIAGNOSIS WITH L. TOE WOUND CELLULITIS, SEPSIS AND PENDING UNCLEAR TEST TOMORROW. PATIENT IS AMBULATORY WITH NKA, FULL CODE, HAS HX OF HTN, DM, & ANEMIA D/T CHRONIC DISEASE, ALERT X 4; MED/SURG PATIENT, ON ROOM AIR, [facility], SCHEDULE ACCUCHECK AT [facility]. MRSA COLLECTED. IV NS@100ML/HR START INFUSING VIS L.AC 20G. WAITING FOR ZYSON3.375 MEDICATION. WILL CONTINUE TO MONITOR
[2022-11-13 20:00] VITALS: BP 204/105
--- NOTE | 2022-11-13 20:00 | NUR ---
DR. RENE ORDERED DAILY BLADDER SCAN BID X 2DAYS, IF MORE THAN 250CC, NOTIFY DR. RENE. WILL ENDORSE TO DAY NURSE , NO BLADDER SCANNER AVAILABLE. PATIENT IS URINATING, AT THIS TIME EMPTIED 450CC.
--- NOTE | 2022-11-13 21:30 | NUR ---
BLOOD SUGAR 100 MG/DL, NO INSULIN COVERAGE NEEDED, VITALS TAKEN, SCHEDULED MEDICATION GIVEN ORDERED. PATIENT IS AWAKE, ALERT AND ORIENTED, CALL LIGHT WITHIN REACH.
[2022-11-13] MEDS: amLODIPine 5 MG TAB PO SCH (21:37)
[2022-11-14] MEDS ORDERED: PIPERACILLIN/TAZOBACTAM 3.375 GM VIAL IV ONE ×2 (00:02→05:52)
[2022-11-14] MEDS: PIPERACILLIN/TAZOBACTAM 3.375 GM in DEXTROSE 5% 50 ML IV SCH ×3 (00:15→12:50)
--- NOTE | 2022-11-14 00:15 | NUR ---
DUE IV ANTIBIOTIC GIVEN ORDERED. PATIENT IS AWAKE, DENIES PAIN, BREATHING EVEN AND NON LABORED. CALL LIGHT WITHIN REACH.
[2022-11-14 04:00] VITALS: BP 144/80
--- NOTE | 2022-11-14 04:50 | NUR ---
URINE COLLECTED FOR URINE PROFILE.
[2022-11-14] MEDS: NACL 0.9% 1,000 ML IV SCH ×2 (04:55→15:13)
[2022-11-14] MEDS: BLOOD GLUCOSE MONITORING 1 DEV DEV FS SCH ×4 (06:32→21:04)
--- NOTE | 2022-11-14 07:11 | NUR ---
ENDORSED TO DAY NURSE FOR CONTINUITY OF CARE. NEEDS MET THROUGHOUT THE SHIFT. PATIENT IN STABLE CONDITION.
--- NOTE | 2022-11-14 07:15 | NUR ---
RECEIVED REPORT FROM TANK CAR LOADER NURSE FOR CONTINUITY OF CARE. PT IS STABLE AT THIS TIME.
[2022-11-14 07:23] LABS: BASOPHILS % (AUTO) 0.4 % (0.0-2.0); EOSINOPHILS # (AUTO) 0.3 K/uL (0-0.4); EOSINOPHILS % (AUTO) 2.5 % (0.0-4.0); HEMATOCRIT 26.2 % (36-52); HEMOGLOBIN 8.9 g/dL (12.0-18.0); LYMPHOCYTES % (AUTO) 15.9 % (20.5-51.1); MEAN CORPUSCULAR HEMOGLOBIN 30 pg (27-31); MEAN CORPUSCULAR HGB CONC 34 g/dL (33-37); MEAN CORPUSCULAR VOLUME 87.7 fL (80-94); MONOCYTES # (AUTO) 0.9 K/uL (0.8-1.0); MONOCYTES % (AUTO) 7.3 % (1.7-9.3); NEUTROPHILS # (AUTO) 9.4 K/uL (1.8-7.7); NEUTROPHILS % (AUTO) 73.9 % (42.2-75.2); PLATELET COUNT (AUTO) 282 K/uL (140-450); RED BLOOD CELL COUNT(AUTO) 2.99 MIL/uL (4.20-6.10); RED CELL DISTRIBUTION WIDTH 13.4 % (11.6-13.7); WHITE BLOOD COUNT (AUTO) 12.7 K/uL (4.8-10.8)
[2022-11-14 07:25] LABS: ANION GAP 10.7 (8-16); CARBON DIOXIDE 26.9 mmol/L (21-32); CREATININE 1.6 mg/dL (0.6-1.3); POTASSIUM 3.6 mmol/L (3.5-5.1)
[2022-11-14 08:00] VITALS: BP 172/90
[2022-11-14] MEDS: TAMSULOSIN 0.4 MG CAP PO SCH (08:30)
[2022-11-14] MEDS ORDERED: lisinopriL 20 MG TAB PO SCH (09:00)
[2022-11-14 09:06] LABS: T4 (THYROXINE) 9.3 ug/dL (4.5-12.0)
[2022-11-14] MEDS: amLODIPine 5 MG TAB PO SCH (09:52)
[2022-11-14] MEDS: lisinopriL 20 MG TAB PO SCH (09:52)
[2022-11-14] MEDS: PANTOPRAZOLE 40 MG TABEC PO SCH (09:52)
[2022-11-14] MEDS: INSULIN LISPRO SLIDING SCALE 100 UNITS/ML VIAL SUBQ PRN ×2 (12:50→20:53)
[2022-11-14] MEDS ORDERED: VANCOMYCIN PER PHARMACY MC PRN (13:10)
--- NOTE | 2022-11-14 14:13 | NUR ---
DC PLANNING PT CURRENTLY ON ISO PRECAUTION; NUCLEAR PRECAUTIONS. SW TO FOLLOW Addendum: 11/15/22 at 1232 by Radha REMY PT STILL CURRENTLY ON ISO PRECAUTIONS. SW TO FOLLOW
--- NOTE | 2022-11-14 15:39 | NUR ---
11/14/22 RD INITIAL ASSESSMENT COMPLETED PLEASE REFER TO NUTRITION ASSESSMENT UNDER CARE ACTIVITY FOR ESTIMATED NUTRITIONAL NEEDS. 1. RECOMMEND ADDING CARDIAC TO CCHO 60 GRAM DIET 2. MONITOR GI, PO INTAKE, AND LAB VALUES. 3. RD TO FOLLOW-UP 3-5 DAYS, MODERATE RISK REVIEWED BY LEAH CHRISTY RD
[2022-11-14 16:00] VITALS: BP 182/94
[2022-11-14] MEDS: VANCOMYCIN HCL 1.25 GM in DEXTROSE 5% 250 ML IV SCH (17:17)
[2022-11-14] MEDS: hydrALAZINE 20 MG/ML VIAL IVP PRN (18:13)
--- NOTE | 2022-11-14 19:37 | NUR ---
ENDORSED PT TO CONSTRUCTION EQUIPMENT OPERATOR NURSE FOR CONTINUITY OF CARE. PT STABLE AT THIS TIME.
--- NOTE | 2022-11-14 19:38 | NUR ---
RECEIVED ENDORSEMENT FROM HERNAN CATALAN, PATIENT WAS STABLE DURING SHIFT CHANGE. PATIENT WAS ABLE TO EXPLAIN WHY HE IS IN THE FACILITY. PATIENT HAS A SLIGHT TEMPERATURE. PATIENT IS AMBULATORY AND ABLE TO USE THE CALL LIGHT WITHOUT INCIDENT. SIDE RAILS UP X 2 FOR COMFORT AND SAFETY. IV CLEAN AND INTACT. NO S/S OF PAIN/DISCOMFORT. NO S/S OF RESPIRATORY DISTRESS. NURSING WILL GIVE TYLENOL FOR TEMPERATURE. NO S/S OF HYPER/HYPOGLYCEMIA. CALL LIGHT WITHIN REACH. [email or web address]
[2022-11-14 20:00] VITALS: BP 153/74
--- NOTE | 2022-11-14 23:57 | NUR ---
DURING ROUNDS NURSING NOTED PATIENT ASLEEP. CHEST RISING AND FALLING WITHOUT DISTRESS. [id number]
[2022-11-15 04:00] VITALS: BP 174/96
[2022-11-15] MEDS: BLOOD GLUCOSE MONITORING 1 DEV DEV FS SCH ×4 (06:37→20:53)
--- NOTE | 2022-11-15 07:07 | NUR ---
ENDORSED PATIENT TO HERNAN RN, FOR CONTINUITY OF CARE. PATIENT WAS STABLE DURING SHIFT REPORT. [email or web address]
[2022-11-15 07:08] LABS: BASOPHILS % (AUTO) 0.3 % (0.0-2.0); EOSINOPHILS # (AUTO) 0.4 K/uL (0-0.4); EOSINOPHILS % (AUTO) 2.8 % (0.0-4.0); HEMATOCRIT 24.3 % (36-52); HEMOGLOBIN 8.3 g/dL (12.0-18.0); LYMPHOCYTES # (AUTO) 2.4 K/uL (2.0-11.5); LYMPHOCYTES % (AUTO) 18.4 % (20.5-51.1); MEAN CORPUSCULAR HEMOGLOBIN 30 pg (27-31); MEAN CORPUSCULAR HGB CONC 34 g/dL (33-37); MONOCYTES % (AUTO) 7.6 % (1.7-9.3); NEUTROPHILS # (AUTO) 9.1 K/uL (1.8-7.7); NEUTROPHILS % (AUTO) 70.9 % (42.2-75.2); PLATELET COUNT (AUTO) 272 K/uL (140-450); RED BLOOD CELL COUNT(AUTO) 2.79 MIL/uL (4.20-6.10); RED CELL DISTRIBUTION WIDTH 13.2 % (11.6-13.7); WHITE BLOOD COUNT (AUTO) 12.9 K/uL (4.8-10.8)
--- NOTE | 2022-11-15 07:10 | NUR ---
RECEIVED REPORT FROM COMPOSITION TEACHER NURSE FOR CONTINUITY OF CARE. PT IS STABLE AT THIS TIME.
[2022-11-15 07:29] LABS: ANION GAP 11.8 (8-16); CARBON DIOXIDE 24.9 mmol/L (21-32); CREATININE 1.7 mg/dL (0.6-1.3); POTASSIUM 3.7 mmol/L (3.5-5.1)
[2022-11-15 08:00] VITALS: BP 169/80
[2022-11-15] MEDS: PANTOPRAZOLE 40 MG TABEC PO SCH (09:38)
[2022-11-15] MEDS: lisinopriL 20 MG TAB PO SCH (09:39)
[2022-11-15] MEDS: TAMSULOSIN 0.4 MG CAP PO SCH (09:39)
[2022-11-15] MEDS: amLODIPine 5 MG TAB PO SCH (09:40)
[2022-11-15 16:00] VITALS: BP 168/91
[2022-11-15] MEDS: VANCOMYCIN HCL 1.25 GM in DEXTROSE 5% 250 ML IV SCH (16:00)
[2022-11-15] MEDS: INSULIN LISPRO SLIDING SCALE 100 UNITS/ML VIAL SUBQ PRN ×2 (17:04→20:54)
[2022-11-15] MEDS: hydrALAZINE 20 MG/ML VIAL IVP PRN (17:30)
--- NOTE | 2022-11-15 19:15 | NUR ---
ENDORSED PT TO PBX OPERATOR NURSE FOR CONTINUITY OF CARE. PT STABLE AT THIS TIME.
--- NOTE | 2022-11-15 19:20 | NUR ---
WENT TO CHECK ON PT AN UNHOOK HIM FROM HIS IV AND PT STATED THAT HIS L ARM WAS HURTING. IV IS STILL INTACT AND PATENT AND I LET THE JBOSS ARCHITECT NURSE KNOW OF THE PAIN.
--- NOTE | 2022-11-15 19:21 | NUR ---
RECEIVED ENDORSEMENT FROM STEVEN CATALAN (REGISTRY), PATIENT WAS STABLE DURING SHIFT REPORT. PATIENT IS ALERT AND ORIENTED X 4 COOK ISLANDER SPEAKER. PATIENT HAS DAUGHTER AT BEDSIDE. PATIENT HAS PROCEDURE TODAY AND HAS A DRQAIN NOTED TO THE LEFT SIDE WITH DARK BROWN THICK AND DRAINAGE. PATIENT HAS SOME DISCOMFORT BECAUSE OF PLACEMENT OF DRAINAGE. NO NOTED RESPIRATORY DISTRESS. CHEST IS RISING AND FALLING WITHOUT INCIDENT. PATIENT WAS ABLE TO WALK TO THE RESTROOM WITHOUT ASSISTANCE. SIDE RAILS UP X 2 FOR SAFETY AND ADJUSTMENTS. CALL LIGHT WITHIN REACH. NURSING WILL FREQUENT TO MET AND SPEAK WITH BERNARDINO (DAUGHTER) HARI FOR COPIES AND PATIENT STATUS. [email or web address] Addendum: 11/15/22 at 2016 by Marita Horn LVN WRONG PATIENT CHARTING. [email or web address]
--- NOTE | 2022-11-15 19:35 | NUR ---
RECEIVED ENDORSEMENT FROM HERNAN CATALAN , PATIENT WAS STABLE DURING SHIFT REPORT. PATIENT IS ALERT AND ORIENTED X 4. PATIENT EXPLAINED THAT HIS SHOULDER STARTED HURTING AFTER MEDICATION WAS GIVEN IN HIS IV ON THE LET ARM. NURSING WILL GIVE PAIN MANAGEMENT WITH EVENING MEDICATION. PATIENT HAS ID CONSULT FOR LEFT LEG ULCER. PATIENT DENIES RESPIRATORY DISTRESS. CHEST IS RISING AND FALLING WITHOUT INCIDENT. PATIENT WAS ABLE TO WALK TO THE RESTROOM WITHOUT ASSISTANCE. SIDE RAILS UP X 2 FOR SAFETY AND ADJUSTMENTS. CALL LIGHT WITHIN REACH. [email or web address]
[2022-11-15 20:00] VITALS: BP 153/90
--- NOTE | 2022-11-15 20:00 | NUR ---
Patient's Plan of Care was discussed and reviewed with RAKAN HERMAN:
--- NOTE | 2022-11-15 22:16 | NUR ---
NURSING CHANGED IV TO RIGHT HAND WITH A 20 YISEL. ATTEMPT X 1. DRESSING CHANGE FOR THE PATIENT'S FOOT WAS COMPLETED WITH BETADINE AND GAUZE. PATIENT TOLERATED IT WELL. NO NOTED DRAINAGE NO NOTED ASSOCIATED PAIN WHILE DRESSING WAS TAKEN OFF OR PUT BACK ON. [email or web address]
--- NOTE | 2022-11-15 23:22 | NUR ---
DR CALVILLO TOOK AN EXAMINATION TO THE LEFT GREAT TOE. PATIENT HAS BEEN RECOMMENDED FOR A PICC LINE AND 6 WEEKS OF ANTIBIOTICS. DOCTOR WILL PLACE AN ORDER FOR A CT SCAN OF THE BONE BEFORE AN SURGICAL SCHEDULING. [email or web address]
--- NOTE | 2022-11-15 23:57 | NUR ---
COSENT FOR PICCLINE WILL BE SIGNED TOMORROW BY PATIENT. [email or web address]
--- NOTE | 2022-11-16 00:50 | NUR ---
PATIENT SIGNED CONSENT FOR PICC LINE AFTER ACCIDENTALLY PULLING OUT THE 20GAGE IN THE RIGHT HAND IN HIS SLEEP. [email or web address]
--- NOTE | 2022-11-16 03:18 | NUR ---
PATIENT IN BED ASLEEP. NO NOTED S/S OF PAIN/DISCOMFORT. NO NOTED S/S OF RESPIRATORY DISTRESS. CALL LIGHT WITHIN REACH. [email or web address]
[2022-11-16 04:00] VITALS: BP 137/74
--- NOTE | 2022-11-16 05:07 | NUR ---
PATIENT ABLE TO AMBULATE TO THE RESTROOM. PATIENT HAS NO NOTED PAIN/OR DISCOMFORT. NO NOTED S/S OF RESPIRATORY DISTRESS. CALL LIGHT WITHIN REACH. [email or web address]
[2022-11-16] MEDS: BLOOD GLUCOSE MONITORING 1 DEV DEV FS SCH ×4 (06:32→20:47)
--- NOTE | 2022-11-16 07:26 | NUR ---
ENDORSED PATIENT CARE TO JOEL HERMAN, PATIENT WAS STABLE DURING SHIFT REPORT. [email or web address]
--- NOTE | 2022-11-16 07:27 | NUR ---
RECEIVED REPORT FROM FIBERGLASS BOAT MAKER NURSE, RAKAN, FOR CONTINUITY OF CARE. PT IS IN BED AT THIS TIME WATCHING TELEVISION. RESPIRATIONS ARE EVEN AND UNLABORED ON ROOM AIR. NO SIGNS OF DISTRESS NOTED. NO COMPLAINTS OF SOB. NO COMPLAINTS OF PAIN OR DISCOMFORT AT THIS TIME. PT IS ALERT AND ORIENTED X4, ABLE TO FOLLOW COMMANDS, ABLE TO VERBALIZE NEEDS. PT IS S/P DEBRIDEMENT TO L GREAT TOE. NO EXCESS DRAINAGE NOTED. PT HAS NO IV ACCESS AT THIS TIME. PER FIBERGLASS BOAT MAKER NURSE, PT HAS ORDER TO PICC LINE. AWAITING PICC LINE NURSE FOLLOW UP. CALL LIGHT WITHIN REACH. ALL SAFETY MEASURES IN PLACE.
[2022-11-16 07:35] LABS: CARBON DIOXIDE 26.8 mmol/L (21-32); CREATININE 1.9 mg/dL (0.6-1.3); POTASSIUM 3.8 mmol/L (3.5-5.1)
[2022-11-16 07:35] LABS: BASOPHILS % (AUTO) 0.4 % (0.0-2.0); EOSINOPHILS # (AUTO) 0.3 K/uL (0-0.4); EOSINOPHILS % (AUTO) 2.6 % (0.0-4.0); HEMOGLOBIN 8.6 g/dL (12.0-18.0); LYMPHOCYTES # (AUTO) 2.3 K/uL (2.0-11.5); LYMPHOCYTES % (AUTO) 20.1 % (20.5-51.1); MEAN CORPUSCULAR HEMOGLOBIN 30 pg (27-31); MEAN CORPUSCULAR HGB CONC 34 g/dL (33-37); MEAN CORPUSCULAR VOLUME 86.3 fL (80-94); MONOCYTES % (AUTO) 8.2 % (1.7-9.3); NEUTROPHILS % (AUTO) 68.7 % (42.2-75.2); PLATELET COUNT (AUTO) 297 K/uL (140-450); WHITE BLOOD COUNT (AUTO) 11.7 K/uL (4.8-10.8)
[2022-11-16 08:00] VITALS: BP 156/83
[2022-11-16] MEDS: TAMSULOSIN 0.4 MG CAP PO SCH (08:30)
--- NOTE | 2022-11-16 09:47 | NUR ---
PICC LINE PLACED, SYDNEE 2 LEUMIN. OK TO USE PER PICC LINE NURSE THAI.
[2022-11-16] MEDS: PANTOPRAZOLE 40 MG TABEC PO SCH (09:49)
[2022-11-16] MEDS: lisinopriL 20 MG TAB PO SCH (09:50)
[2022-11-16] MEDS: amLODIPine 5 MG TAB PO SCH (09:50)
[2022-11-16] MEDS: INSULIN LISPRO SLIDING SCALE 100 UNITS/ML VIAL SUBQ PRN ×2 (11:48→17:38)
--- NOTE | 2022-11-16 12:50 | NUR ---
DID ROUNDS ON PT. PT IN BED WATCHING TELEVISION. NO COMPLAINTS OF PAIN OR DISCOMFORT.
--- NOTE | 2022-11-16 15:46 | NUR ---
PT FAMILY AT BEDSIDE. ASKING FOR UPDATES. UPDATED PT AND FAMILY ON POC.
[2022-11-16 16:00] VITALS: BP 140/72
[2022-11-16] MEDS ORDERED: VANCOMYCIN 1.25GM PREMIX 250 ML IV SCH (16:00)
--- NOTE | 2022-11-16 19:15 | NUR ---
ENDORSED PT TO LEADITE HEATER NURSE, HOLIDAY, FOR CONTINUITY OF CARE. PT IS STABLE.
[2022-11-17] MEDS: BLOOD GLUCOSE MONITORING 1 DEV DEV FS SCH ×4 (06:44→21:02)
--- NOTE | 2022-11-17 07:27 | NUR ---
RECEIVED PATIENT FROM ACT TUTOR NURSE,PATIENT IS SITTING IN THE BEDSIDE,VERBALLY ACTIVE.WAS KEPT NPO PER ORDER.CALL LIGHT WITHIN REACH.POC DISCUSSED.WILL CONTINUE TO MONITOR.
[2022-11-17 07:43] LABS: BASOPHILS % (AUTO) 0.4 % (0.0-2.0); EOSINOPHILS # (AUTO) 0.3 K/uL (0-0.4); EOSINOPHILS % (AUTO) 2.4 % (0.0-4.0); HEMOGLOBIN 8.9 g/dL (12.0-18.0); LYMPHOCYTES # (AUTO) 2.6 K/uL (2.0-11.5); LYMPHOCYTES % (AUTO) 21.4 % (20.5-51.1); MEAN CORPUSCULAR HEMOGLOBIN 30 pg (27-31); MEAN CORPUSCULAR HGB CONC 34 g/dL (33-37); MONOCYTES # (AUTO) 0.9 K/uL (0.8-1.0); MONOCYTES % (AUTO) 7.1 % (1.7-9.3); NEUTROPHILS # (AUTO) 8.4 K/uL (1.8-7.7); NEUTROPHILS % (AUTO) 68.7 % (42.2-75.2); PLATELET COUNT (AUTO) 325 K/uL (140-450); RED BLOOD CELL COUNT(AUTO) 2.99 MIL/uL (4.20-6.10); RED CELL DISTRIBUTION WIDTH 13.5 % (11.6-13.7); WHITE BLOOD COUNT (AUTO) 12.2 K/uL (4.8-10.8)
[2022-11-17 08:00] VITALS: BP 142/92
[2022-11-17 08:02] LABS: ANION GAP 12.3 (8-16); CARBON DIOXIDE 25.6 mmol/L (21-32); CREATININE 2.2 mg/dL (0.6-1.3); POTASSIUM 3.9 mmol/L (3.5-5.1)
--- NOTE | 2022-11-17 08:36 | NUR ---
DC PLANNING ASSESSMENT COMPLETE PLEASE REFER TO ASSESSMENT FOR DETAILS PT REPORTS DC PLAN IS TO RETURN HOME WITH FAMILY PROVIDING TRANSPORTATION, WHEN MEDICALLY STABLE. Addendum: 11/17/22 at 0838 by Radha REMY Amended: Links added.
[2022-11-17] MEDS: TAMSULOSIN 0.4 MG CAP PO SCH (08:38)
[2022-11-17] MEDS: amLODIPine 5 MG TAB PO SCH (08:39)
[2022-11-17] MEDS: PANTOPRAZOLE 40 MG TABEC PO SCH (08:39)
[2022-11-17] MEDS: lisinopriL 20 MG TAB PO SCH (08:41)
[2022-11-17] MEDS: DEXT 5% /NACL 0.9% 1,000 ML IV SCH (11:44)
--- NOTE | 2022-11-17 12:36 | NUR ---
PATIENT LEFT THE UNIT TO OR FOR DEBRIDEMENT OF THE LEG WOUND.OR NURSES AT BEDSIDE.
[2022-11-17] MEDS ORDERED: BUPIVACAINE-MPF 0.5% 30 ML VIAL INJ ONE (12:50)
[2022-11-17] MEDS ORDERED: HYDROGEN PEROXIDE 3% 240 ML BTL TP ONE (12:56)
[2022-11-17] MEDS ORDERED: PROPOFOL 200 MG/20 ML VIAL IV ONE (13:27)
[2022-11-17] MEDS ORDERED: ONDANSETRON 4 MG/2 ML VIAL ONE (13:27)
[2022-11-17] MEDS ORDERED: LABETALOL 20 MG/4 ML VIAL IVP PRN (13:55)
[2022-11-17] MEDS ORDERED: HYDROmorphone 1 MG/ML AMP IVP PRN (13:55)
[2022-11-17] MEDS ORDERED: METOCLOPRAMIDE 10 MG/2 ML INJ VIAL IVP PRN (13:55)
[2022-11-17] MEDS ORDERED: BLOOD GLUCOSE MONITORING 1 DEV DEV FS SCH (13:55)
[2022-11-17] MEDS ORDERED: hydrALAZINE 20 MG/ML VIAL IVP PRN (13:55)
[2022-11-17] MEDS: NACL 0.9% 1,000 ML IV SCH ×2 (13:55→23:55)
[2022-11-17] MEDS ORDERED: NACL 0.9% 1,000 ML IV SCH (13:55)
--- NOTE | 2022-11-17 14:45 | NUR ---
RECEIEVED PATIENT FROM OR.UNDERWENT LEFT FOOT DEBRIDEMENT, LEFT FOOT XRAY ,INCISION AND DRAINAGE. ON 60 ML D5NS.VS ARE STABLE.WILL CONTINUE TO MONITOR.
--- NOTE | 2022-11-17 15:30 | NUR ---
NOTED RESISTENCE IN THE PICC LINE.ATTEMPTED 22G PERIPHERAL IV AND PLACED IT IN THE LEFT ARM.NOTIFIED MD REGARDING THE PICC LINE.RESUMED INTO CARDIAC DIET.
[2022-11-17 16:00] VITALS: BP 146/87
[2022-11-17] MEDS: VANCOMYCIN 750 MG in DEXTROSE 5% 250 ML IV SCH (17:12)
--- NOTE | 2022-11-17 19:30 | NUR ---
ENDORSED THE PATIENT TO TRANSFORMER MECHANIC NURSE FOR CONTINUITY OF CARE.NO SIGNS OF DISTRESS NOTED.
--- NOTE | 2022-11-17 19:33 | NUR ---
RECEIVED PATIENT IN BED RESTING ON ROOM AIR. AWAKE ALERT ORIENTED. NO DISTRESS NOTED. ABLE TO AMBULATE. IVF D5 NS INFUSING 60 ML/HR ON THE LEFT WRIST. DRESSING DRY AND INTACT. CALL LIGHT WITHIN REACH. WHEELS OF BED LOCKED IN LOW POSITION.
[2022-11-17 20:00] VITALS: BP 136/85
--- NOTE | 2022-11-17 21:02 | NUR ---
CHECKED BLOOD SUGAR WAS 167. HUMALOG INSULIN ADMINISTERED ORDERED PER SLIDING SCALE.
[2022-11-17] MEDS: INSULIN LISPRO SLIDING SCALE 100 UNITS/ML VIAL SUBQ PRN (21:04)
[2022-11-18] MEDS: DEXT 5% /NACL 0.9% 1,000 ML IV SCH ×2 (04:29→20:55)
[2022-11-18] MEDS: BLOOD GLUCOSE MONITORING 1 DEV DEV FS SCH ×4 (06:50→21:22)
--- NOTE | 2022-11-18 06:50 | NUR ---
BLOOD SUGAR CHECKED WAS 144 NO INSULIN COVERAGE NEEDED.
--- NOTE | 2022-11-18 07:20 | NUR ---
RECEIVED REPORT FROM NIGHT NURSE JOAQUÍN FOR CONTINUITY OF CARE. INITIAL ASSESSMENT DONE. IVF INFUSING WELL. NO C/O PAIN OR DISCOMFORT. CALL LIGHT KEPT WITHIN REACH. WILL CONTINUE TO MONITOR.
--- NOTE | 2022-11-18 07:23 | NUR ---
ENDORSED PATIENT TO DAY SHIFT NURSE FOR CONTINUITY OF CARE.
[2022-11-18 07:31] LABS: BASOPHILS % (AUTO) 0.3 % (0.0-2.0); EOSINOPHILS # (AUTO) 0.3 K/uL (0-0.4); HEMATOCRIT 24.3 % (36-52); HEMOGLOBIN 8.3 g/dL (12.0-18.0); LYMPHOCYTES # (AUTO) 1.7 K/uL (2.0-11.5); LYMPHOCYTES % (AUTO) 13.4 % (20.5-51.1); MEAN CORPUSCULAR HEMOGLOBIN 30 pg (27-31); MEAN CORPUSCULAR HGB CONC 34 g/dL (33-37); MEAN CORPUSCULAR VOLUME 87.1 fL (80-94); MONOCYTES # (AUTO) 0.9 K/uL (0.8-1.0); MONOCYTES % (AUTO) 7.5 % (1.7-9.3); NEUTROPHILS # (AUTO) 9.7 K/uL (1.8-7.7); NEUTROPHILS % (AUTO) 76.8 % (42.2-75.2); PLATELET COUNT (AUTO) 302 K/uL (140-450); RED BLOOD CELL COUNT(AUTO) 2.79 MIL/uL (4.20-6.10); RED CELL DISTRIBUTION WIDTH 13.3 % (11.6-13.7); WHITE BLOOD COUNT (AUTO) 12.7 K/uL (4.8-10.8)
[2022-11-18 07:39] LABS: ANION GAP 10.2 (8-16); CARBON DIOXIDE 25.7 mmol/L (21-32); CREATININE 2.2 mg/dL (0.6-1.3); POTASSIUM 3.9 mmol/L (3.5-5.1)
[2022-11-18 08:00] VITALS: BP 137/74
--- NOTE | 2022-11-18 08:50 | NUR ---
SEEN BY DR. GALINDO WITH NEW ORDER: REINSERT PICC LINE. NOTED AND CARRIED OUT.
[2022-11-18] MEDS: TAMSULOSIN 0.4 MG CAP PO SCH (09:00)
[2022-11-18] MEDS: PANTOPRAZOLE 40 MG TABEC PO SCH (09:01)
[2022-11-18] MEDS: lisinopriL 20 MG TAB PO SCH (09:02)
[2022-11-18] MEDS: amLODIPine 5 MG TAB PO SCH (09:03)
--- NOTE | 2022-11-18 09:03 | NUR ---
ADMINISTERED SCHEDULED MEDICATIONS. TOLERATING WELL.
[2022-11-18] MEDS: NACL 0.9% 1,000 ML IV SCH ×2 (09:55→18:11)
[2022-11-18] MEDS: INSULIN LISPRO SLIDING SCALE 100 UNITS/ML VIAL SUBQ PRN ×2 (12:43→21:23)
--- NOTE | 2022-11-18 12:43 | NUR ---
BE CHECKED 166. INSULIN WAS GIVEN PER SLIDING SCALE.
[2022-11-18 16:00] VITALS: BP 158/86
--- NOTE | 2022-11-18 16:05 | NUR ---
11/18/22 RD FOLLOW UP COMPLETED PLEASE REFER TO NUTRITION ASSESSMENT UNDER CARE ACTIVITY FOR ESTIMATED NUTRITIONAL NEEDS. 1. CONTINUE CCHO 60 GM, CARDIAC DIET TOLERATED 2. RECOMMEND JUAN CARLOS BID FOR WOUND SUPPORT -PROVIDES 160 KCAL, 5 GM PROTEIN DAILY 3. MONITOR GI SYMPTOMS, PO INTAKE, AND NUTRITION RELATED LAB VALUES 4. RD TO FOLLOW-UP 7 DAYS, LOW RISK REVIEWED BY LEAH CHRISTY RD
--- NOTE | 2022-11-18 16:35 | NUR ---
BS CHECKED 138. NO COVERAGE NEEDED.
[2022-11-18] MEDS ORDERED: CALCIUM GLUCONATE 10% 1,000 MG in NACL 0.9% 50 ML IV ONE (17:10)
--- NOTE | 2022-11-18 17:25 | NUR ---
SEEN BY DR. RODNEY W/ NEW ORDER: INSERT F/C. PT REFUSED. EXPLAINED RISK AND BENEFITS BUT STILL REFUSED. DR. RODNEY MADE AWARE.
[2022-11-18] MEDS ORDERED: CALCIUM GLUC 1 GM/50 mL NS BAG 50 ML IV SCH (17:30)
[2022-11-18] MEDS: VANCOMYCIN 750 MG in DEXTROSE 5% 250 ML IV SCH (18:12)
--- NOTE | 2022-11-18 19:10 | NUR ---
PATIENT IN BED WELL RESTED. NO DISTRESS NOTED ON ROOM AIR. DENIES PAIN. IVF NS INFUSING 70 ML/HR ON THE SYDNEE PICC LINE, TO INFUSE 1L ONLY THEN DISCONTINUE AND WILL CONTINUE WITH D5NS. CALL LIGHT WITHIN REACH. PATIENT IS AMBULATORY.
--- NOTE | 2022-11-18 19:20 | NUR ---
REPORT GIVEN TO NIGHT NURSE JOAQUÍN FOR CONTINUITY OF CARE. REMAINS STABLE.
--- NOTE | 2022-11-18 21:22 | NUR ---
BLOOD SUGAR CHECKED WAS 199. ADMINISTERED HUMALOG INSULIN ORDERED PER SLIDING SCALE.
[2022-11-19] VITALS: BP 132/68
[2022-11-19] MEDS: INSULIN LISPRO SLIDING SCALE 100 UNITS/ML VIAL SUBQ PRN ×2 (06:30→20:51)
[2022-11-19] MEDS: BLOOD GLUCOSE MONITORING 1 DEV DEV FS SCH ×4 (06:30→20:51)
--- NOTE | 2022-11-19 07:20 | NUR ---
RECEIVED REPORT FROM NIGHT NURSE JOAQUÍN FOR CONTINUITY OF CARE. INITIAL ASSESSMENT DONE. IVF INFUSING WELL. PICC LINE INTACT TO SYDNEE. CALL LIGHT KEPT WITHIN REACH. WILL CONTINUE TO MONITOR.
[2022-11-19] MEDS: NACL 0.9% 1,000 ML IV SCH (07:28)
--- NOTE | 2022-11-19 07:31 | NUR ---
ENDORSED TO AM SHIFT NURSE FOR CONTINUITY OF CARE. PATIENT STABLE.
[2022-11-19 07:52] LABS: BASOPHILS % (AUTO) 0.3 % (0.0-2.0); EOSINOPHILS # (AUTO) 0.3 K/uL (0-0.4); EOSINOPHILS % (AUTO) 2.6 % (0.0-4.0); HEMOGLOBIN 8.2 g/dL (12.0-18.0); LYMPHOCYTES # (AUTO) 2.2 K/uL (2.0-11.5); LYMPHOCYTES % (AUTO) 17.7 % (20.5-51.1); MEAN CORPUSCULAR HEMOGLOBIN 30 pg (27-31); MEAN CORPUSCULAR HGB CONC 34 g/dL (33-37); MONOCYTES # (AUTO) 0.9 K/uL (0.8-1.0); MONOCYTES % (AUTO) 6.8 % (1.7-9.3); NEUTROPHILS # (AUTO) 9.1 K/uL (1.8-7.7); NEUTROPHILS % (AUTO) 72.6 % (42.2-75.2); PLATELET COUNT (AUTO) 316 K/uL (140-450); RED BLOOD CELL COUNT(AUTO) 2.76 MIL/uL (4.20-6.10); RED CELL DISTRIBUTION WIDTH 13.1 % (11.6-13.7); WHITE BLOOD COUNT (AUTO) 12.5 K/uL (4.8-10.8)
[2022-11-19 08:00] VITALS: BP 145/82
[2022-11-19 08:35] LABS: ANION GAP 10.8 (8-16); CARBON DIOXIDE 26.4 mmol/L (21-32); CREATININE 2.3 mg/dL (0.6-1.3); POTASSIUM 4.2 mmol/L (3.5-5.1)
[2022-11-19] MEDS: amLODIPine 5 MG TAB PO SCH (08:53)
[2022-11-19] MEDS: TAMSULOSIN 0.4 MG CAP PO SCH (08:54)
--- NOTE | 2022-11-19 08:54 | NUR ---
SCHEDULED MEDICATIONS GIVEN. TOLERATING WELL.
[2022-11-19] MEDS: lisinopriL 20 MG TAB PO SCH (08:55)
[2022-11-19] MEDS: PANTOPRAZOLE 40 MG TABEC PO SCH (08:55)
--- NOTE | 2022-11-19 12:07 | NUR ---
BC CHECKED 145. NO COVERAGE NEEDED.
[2022-11-19] MEDS ORDERED: VANCOMYCIN PER PHARMACY MC PRN (15:05)
[2022-11-19] MEDS: DEXT 5% /NACL 0.9% 1,000 ML IV SCH (15:12)
[2022-11-19 16:00] VITALS: BP 143/79
--- NOTE | 2022-11-19 16:55 | NUR ---
RECEIVED CALLED FROM LAB CRITICAL RESULT OF VANCO TROUGH 22.1. PHARMACY NOTIFIED.
[2022-11-19] MEDS: VANCOMYCIN 750 MG in DEXTROSE 5% 250 ML IV SCH (17:00)
--- NOTE | 2022-11-19 17:30 | NUR ---
INFORMED BY PILLOWCASE CLEANER, PER PHARMACY HOLD VANCOMYCIN.
--- NOTE | 2022-11-19 19:10 | NUR ---
BEDSIDE REPORT GIVEN TO ARLENE FOR CONTINUITY OF CARE. REMAINS STABLE.
--- NOTE | 2022-11-19 19:11 | NUR ---
RECEIVED REPORT FROM NURSE CHAS FOR CONTINUITY OF CARE. PT AWAKE IN BED. RESPIRATIONS EVEN AND UNLABORED ON RA. NO DISTRESS NOTED. NO COMPLAINTS OF PAIN. PICC LINE ON SYDNEE RUNNING IVF. POC DISCUSSED WITH PT AND HOSSEIN RASMUSSEN. CALL LIGHT WITHIN REACH. SAFETY PRECAUTIONS IN PLACE.
[2022-11-19 20:00] VITALS: BP 152/77
--- NOTE | 2022-11-19 20:51 | NUR ---
SLIDING SCALE INSULIN ADMINISTERED FOR BS 189. GAVE SNACKS PER PT REQUEST. INFORMED HOSSEIN RASMUSSEN THAT PT'S IV PUMP KEPT ON BEEPING DUE TO HIGH PRESSURE DETECTED. HOSSEIN RASMUSSEN CHECKED AND FLUSHED IV LINE. PER RN, IT WAS HARD TO FLUSH. IVF CONTINUOUSLY RUNNING AT THIS TIME.
[2022-11-20 04:00] VITALS: BP 134/76
[2022-11-20] MEDS: DEXT 5% /NACL 0.9% 1,000 ML IV SCH ×2 (06:15→22:55)
[2022-11-20] MEDS: INSULIN LISPRO SLIDING SCALE 100 UNITS/ML VIAL SUBQ PRN ×4 (06:33→20:30)
[2022-11-20] MEDS: BLOOD GLUCOSE MONITORING 1 DEV DEV FS SCH ×4 (06:33→20:29)
--- NOTE | 2022-11-20 06:33 | NUR ---
SLIDING SCALE INSULIN ADMINISTERED. PT NO COMPLAINTS OF PAIN. NO DISTRESS NOTED.
--- NOTE | 2022-11-20 07:17 | NUR ---
GAVE BEDSIDE REPORT TO HOSSEIN GUPTA FOR CONTINUITY OF CARE. ALL NEEDS MET THROUGHOUT SHIFT. PT REMAINS STABLE.
[2022-11-20] MEDS: TAMSULOSIN 0.4 MG CAP PO SCH (08:48)
[2022-11-20] MEDS: lisinopriL 20 MG TAB PO SCH (08:49)
[2022-11-20] MEDS: PANTOPRAZOLE 40 MG TABEC PO SCH (08:49)
[2022-11-20] MEDS: amLODIPine 5 MG TAB PO SCH (08:49)
--- NOTE | 2022-11-20 09:27 | NUR ---
ASSESSMENT COMPLETED PLAN OF CARE REVIEWED LEFT FOOT IN DRESSING AWAITING MD SURGEON TO COME IN AND CHANGE DRESSING NO ACUTE DISTRESS NOTED CALL LIGHT IN REACH WILL CONTINUE TO MONITOR AND ASSESS
[2022-11-20 16:00] VITALS: BP 155/82
--- NOTE | 2022-11-20 17:53 | NUR ---
VANCOMYCIN AND ROCEPHIN NOT AVAILABLE CALLED [facility] PER DANA GO TO ED AND GIVE ROCEPHIN AND ENDORSE TO ONCOMING SHIFT TO GIVE VANCO AT 2200 SINCE TROUGH WAS ELEVATED 11/19/22
[2022-11-20] MEDS ORDERED: cefTRIAXone 1,000 MG VIAL ONE (17:59)
--- NOTE | 2022-11-20 18:02 | NUR ---
ROCEPHIN STOCKED ON FLOOR WILL GIVE NOW
--- NOTE | 2022-11-20 19:27 | NUR ---
PT FOR SURGERY 11/21/22 CARE ENDORSED AND PT AWARE SHE IS NPO AFTER MIDNIGHT MADE AWARE TO GET CONSENT AND CHECKLIST NO DISTRESS
--- NOTE | 2022-11-20 19:30 | NUR ---
RECEIVED REPORT FROM DAY SHIFT NURSE CANDY FOR CONTINUITY OF CARE. PT IN BED AWAKE. RESPIRATIONS EVEN AND UNLABORED ON RA. NO COMPLAINTS OF PAIN. LEFT FOOT COVERED WITH DRESSING, DRY AND INTACT. INITIAL ASSESSMENT DONE. POC DISCUSSED WITH PT AND HOSSEIN MATTSON. CALL LIGHT WITHIN REACH. SAFETY PRECAUTIONS IN PLACE. Addendum: 11/21/22 at 0104 by Mariam Bowman LVN PER HOSSEIN GUPTA. IV VANCO DUE AT 1700 NOT GIVEN AND WAS ADVISED BY PHARMACY TO ADMINISTER AT 2200.
[2022-11-20 20:00] VITALS: BP 136/64
--- NOTE | 2022-11-20 20:32 | NUR ---
SLIDING SCALE INSULIN ADMINISTERED. PT TOLERATED WELL.
--- NOTE | 2022-11-20 21:17 | NUR ---
CONFIRMED WITH TRANG OF [facility], [place] TO GIVE VANCO. TRANG CHANGED ADMINISTRATION TIME TO 2200. INFORMED RN TIWLA.
[2022-11-20] MEDS ORDERED: VANCOMYCIN 1,000 MG VIAL ONE (21:36)
[2022-11-20] MEDS ORDERED: VANCOMYCIN 750 MG in DEXTROSE 5% 250 ML IV SCH (22:00)
--- NOTE | 2022-11-20 22:14 | NUR ---
Patient's Plan of Care was discussed and reviewed with VIRGIL muhammad
[2022-11-21 04:00] VITALS: BP 132/70
[2022-11-21] MEDS: BLOOD GLUCOSE MONITORING 1 DEV DEV FS SCH ×2 (06:38→11:19)
--- NOTE | 2022-11-21 06:38 | NUR ---
NO COVERAGE GIVEN FOR BS 130. PT NO COMPLAINTS OF PAIN. NO DISTRESS NOTED.
--- NOTE | 2022-11-21 07:12 | NUR ---
ENDORSED PT TO HOSSEIN SANDERS FOR CONTINUITY OF CARE. ALL NEEDS MET THROUGHOUT SHIFT. PT IS STABLE.
[2022-11-21 08:00] VITALS: BP 161/83
[2022-11-21] MEDS: TAMSULOSIN 0.4 MG CAP PO SCH (08:10)
[2022-11-21] MEDS: amLODIPine 5 MG TAB PO SCH (08:11)
[2022-11-21] MEDS: PANTOPRAZOLE 40 MG TABEC PO SCH (08:13)
[2022-11-21] MEDS: DEXT 5% /NACL 0.9% 1,000 ML IV SCH (11:00)
[2022-11-21] MEDS: INSULIN LISPRO SLIDING SCALE 100 UNITS/ML VIAL SUBQ PRN (11:56)
[2022-11-21 12:00] VITALS: BP 149/75
[2022-11-21] MEDS ORDERED: Vancomycin Per Pharmacy MC (13:57)
[2022-11-21] MEDS ORDERED: CEFT1SOL1 IV (13:57)
[2022-11-21 15:01] LABS: BASOPHILS # (AUTO) 0.1 K/uL (0.00-0.22); BASOPHILS % (AUTO) 0.6 % (0.0-2.0); EOSINOPHILS # (AUTO) 0.3 K/uL (0-0.4); EOSINOPHILS % (AUTO) 2.7 % (0.0-4.0); HEMATOCRIT 24.9 % (36-52); HEMOGLOBIN 8.3 g/dL (12.0-18.0); LYMPHOCYTES % (AUTO) 16.3 % (20.5-51.1); MEAN CORPUSCULAR HEMOGLOBIN 29 pg (27-31); MEAN CORPUSCULAR HGB CONC 33 g/dL (33-37); MEAN CORPUSCULAR VOLUME 88.1 fL (80-94); MONOCYTES # (AUTO) 0.8 K/uL (0.8-1.0); MONOCYTES % (AUTO) 6.2 % (1.7-9.3); NEUTROPHILS # (AUTO) 9.3 K/uL (1.8-7.7); NEUTROPHILS % (AUTO) 74.2 % (42.2-75.2); PLATELET COUNT (AUTO) 342 K/uL (140-450); RED BLOOD CELL COUNT(AUTO) 2.82 MIL/uL (4.20-6.10); RED CELL DISTRIBUTION WIDTH 13.6 % (11.6-13.7); WHITE BLOOD COUNT (AUTO) 12.6 K/uL (4.8-10.8)
[2022-11-21 15:29] LABS: ANION GAP 10.3 (8-16); CARBON DIOXIDE 26.2 mmol/L (21-32); CREATININE 2.3 mg/dL (0.6-1.3); POTASSIUM 4.5 mmol/L (3.5-5.1)
--- NOTE | 2022-11-21 17:30 | NUR ---
pt discharged to home with - home hela arranged with pt and . d/c instructions given, f/u appointment with dr cruz on . picc line remained on d/c.
[2022-11-21 20:40] LABS: APPEARANCE,URINE CLEAR (CLEAR); BILIRUBIN,URINE NEGATIVE (NEGATIVE); BLOOD, URINE TRACE-I (NEGATIVE); COLOR,URINE YELLOW (YELLOW); LEUKOCYTE ESTERASE ,URINE NEGATIVE (NEGATIVE); NITRITE, URINE NEGATIVE (NEGATIVE); PH,URINE 5.5 (5.0-9.0); UGLUCOSE 1+ (NEGATIVE)
[2022-11-21 20:52] LABS: WBC,URINE 0-5 /HPF (0-5)
== END 2022-11-21 17:25 | disposition home or self-care (01) | DRG 853 ==
LOC: MED 09:24 → MMU 12:47 → MTU 11-13 17:42
PROVIDERS: ADMIT Family Medicine; ATTEND Family Medicine
PROC: 0YBN0ZZ Excision of Left Foot, Open Approach (ICD-10-PCS; 2022-11-17)
PROC: 0QBR0ZX Excision of Left Toe Phalanx, Open Approach, Diagnostic (ICD-10-PCS; principal; 2022-11-17 13:00)
DX: A41.9 Sepsis, unspecified organism (principal); E43 Unspecified severe protein-calorie malnutrition; N17.0 Acute kidney failure with tubular necrosis; M86.8X7 Other osteomyelitis, ankle and foot; D63.8 Anemia in other chronic diseases classified elsewhere; Z68.24 Body mass index [BMI] 24.0-24.9, adult; E11.621 Type 2 diabetes mellitus with foot ulcer; R33.9 Retention of urine, unspecified; L03.032 Cellulitis of left toe; E11.69 Type 2 diabetes mellitus with other specified complication; I12.9 Hypertensive chronic kidney disease with stage 1 through stage 4 chronic kidney disease, or unspecified chronic kidney disease; Z20.822 Contact with and (suspected) exposure to COVID-19; E11.51 Type 2 diabetes mellitus with diabetic peripheral angiopathy without gangrene; E11.22 Type 2 diabetes mellitus with diabetic chronic kidney disease; N18.9 Chronic kidney disease, unspecified; E83.51 Hypocalcemia; Z89.421 Acquired absence of other right toe(s)
CPT/HCPCS: 36415; 71045; 73630; 76770; 78315; 80048; 80053; 80202; 81001; 82150; 82575; 82948; 83036; 83605; 83690; 83735; 83880; 84100; 84300; 84436; 84439; 84443; 84479; 85025; 85610; 85730; 87040; 87070; 87075; 87081; 87205; 96365; 96366; 96367; 96375; 99291; J0360; J0610; J0696; J2405; J2543; J2704; J3370; J3372; J3490; J7060; Q0092

== ENCOUNTER 2023-07-09 17:08 | Emergency (ER) | payer OTHER ==
[~2023-07-09] VITALS: Ht 170.2 cm; Wt 76.7 kg
[~2023-07-09 17:08] MED LIST changes: +ATOR20TA PO; +BENA20TA PO; +CEFT1SOL1 IV; -CEPH-588 PO; -CLIN300C2 PO; -LANTUS SUBQ; +LISI20TA29 PO; +METF-346 PO; -METF-938 PO; +Vancomycin Per Pharmacy MC
[2023-07-09 17:24] VITALS: BP 140/81; PULSE 82; RESP 18; TEMP 98; O2SAT 99
[2023-07-09] MEDS ORDERED: TETRACAINE HCL/PF 0.5% OPTH 4 ML BTL OP ONE (18:20)
[2023-07-09] MEDS ORDERED: FLUORESCEIN OPTH STRIP 1 MG OP ONE (18:20)
[2023-07-09] MEDS ORDERED: IBUP-2213 PO (19:49)
[2023-07-09] MEDS ORDERED: OFLO5DRO2 BOTH EYES (19:49)
[2023-07-09 19:58] VITALS: O2SAT 99
== END 2023-07-09 19:59 | disposition home or self-care (01) ==
LOC: MED 17:08
DX: S05.02XA Injury of conjunctiva and corneal abrasion without foreign body, left eye, initial encounter (principal); H10.213 Acute toxic conjunctivitis, bilateral; S05.01XA Injury of conjunctiva and corneal abrasion without foreign body, right eye, initial encounter; X58.XXXA Exposure to other specified factors, initial encounter; Y93.89 Activity, other specified; Y92.89 Other specified places as the place of occurrence of the external cause; Y99.8 Other external cause status
CPT/HCPCS: 99283